=== PATIENT | male | born 1975 | race Caucasian/White ===

== ENCOUNTER 2017-04-03 16:38 | Emergency (ER) | payer BC ==
[2017-04-03 17:16] VITALS: BP 155/98
--- NOTE | 2017-04-03 17:20 | EDM.PDOC ---
ED HPI GENERAL MEDICAL PROBLEM - General Chief Complaint: Lower Extremity Injury/Pain Stated Complaint: GOUT L KNEE Time Seen by Provider: 04/03/17 17:20 Source of Information: Reports: Patient - History of Present Illness INITIAL COMMENTS - FREE TEXT/NARRATIVE: Patient is here for a gout flare up to his left knee. He states that he does get these frequently. Patient has not been taking his allopurinol. Patient states that he woke at 4 AM feeling the gout flare, wanted to take his colchicine and indomethacin, that was the only dose of each that he has had. Patient reports that on Super Bowl he did drink more alcohol especially beer and have a very poor diet of high purine foods. Patient denies any fever or chills. Denies any other symptoms or injury to his knee. Left Knee Pain Score (Numeric/FACES): 10 - Related Data Allergies Allergy/AdvReac Type Severity Reaction Status Date / Time No Known Allergies Allergy Verified 04/03/17 17:10 Home Meds: Home Meds Omeprazole Magnesium [Prilosec Otc] 20 mg PO DAILY PRN 12/16/15 [History] Colchicine [Colcrys] 0.6 mg PO BID PRN #20 tablet 01/09/16 [Rx] Indomethacin [Indocin] 50 mg PO TIDMEALS PRN #30 cap 01/09/16 [Rx] Allopurinol [Zyloprim] 100 mg PO ASDIRECTED 04/03/17 [History] Colchicine [Colcrys] 0.6 mg PO ONETIME #9 tablet 04/03/17 [Rx] Hydrocodone/Acetaminophen [Hydrocodon-Acetaminophen 5-325] 1 each PO Q6HR PRN # 10 tablet 04/03/17 [Rx] Indomethacin [Indocin] 25 mg PO TID PRN #30 cap 04/03/17 [Rx] Past Medical History Musculoskeletal History: Reports: Gout - Past Surgical History Musculoskeletal Surgical History: Reports: Other (See Below) Social & Family History - Tobacco Use Smoking Status *Q: Never Smoker Second Hand Smoke Exposure: No - Caffeine Use Caffeine Use: Reports: Coffee, Soda - Recreational Drug Use Recreational Drug Use: No Review of Systems - Review of Systems Review Of Systems: See Below Constitutional: Denies: Chills, Fever, Weakness Respiratory: Reports: No Symptoms Cardiovascular: Reports: No Symptoms Musculoskeletal: Reports: Other (Left knee pain and warmth) Skin: Denies: Erythema, Wound Neurological: Reports: No Symptoms ED EXAM, GENERAL - Physical Exam Exam: See Below Exam Limited By: No Limitations General Appearance: Alert, WD/WN, Mild Distress (In pain) Respiratory/Chest: No Respiratory Distress, Lungs Clear, Normal Breath Sounds Cardiovascular: Normal Peripheral Pulses, Regular Rate, Rhythm, No Murmur Peripheral Pulses: 2+: Posterior Tibial (L), Posterior Tibial (R) Extremities: Normal Inspection, Other (Right knee warm to the touch but no erythema. Patient has painful full range of motion. Negative anterior/ posterior drawer. Negative Isabel's.) Neurological: Alert, Oriented Skin Exam: Warm, Dry, Intact Course - Vital Signs Last Recorded V/S: Last Vital Signs Temp 97.6 F 04/03/17 17:10 Pulse 98 04/03/17 17:10 Resp 18 04/03/17 17:10 BP 155/98 H 04/03/17 17:10 Pulse Ox 100 04/03/17 17:10 - Orders/Labs/Meds Orders: Active Orders 24 hr Category Date Time Status CBC WITH MANUAL DIFF [HEME] Stat Lab 04/03/17 17:34 Results Labs: Laboratory Tests 04/03/17 04/03/17 Range/Units 17:34 17:34 WBC 8.43 (4.23-9.07) K/mm3 RBC 4.88 (4.63-6.08) M/mm3 Hgb 15.5 (13.7-17.5) gm/L Hct 43.8 (40.1-51.0) % MCV 89.8 (79.0-92.2) fl MCH 31.8 (25.7-32.2) pg MCHC 35.4 (32.2-35.5) g/dl RDW Std Deviation 41.7 (35.1-43.9) fL Plt Count 128 L (163-337) K/mm3 MPV 10.2 (9.4-12.3) fl Sodium 134 L (136-145) mEq/L Potassium 3.4 L (3.5-5.1) mEq/L Chloride 96 L (98-107) mEq/L Carbon Dioxide 26 (21-32) mEq/L Anion Gap 15.4 H (5-15) BUN 11 (7-18) mg/dL Creatinine 0.9 (0.7-1.3) mg/dL Est Cr Clr Drug Dosing 117.36 mL/min Estimated GFR (MDRD) > 60 (>60) mL/min BUN/Creatinine Ratio 12.2 L (14-18) Glucose 127 H (74-106) mg/dL Uric Acid 8.1 H (3.5-7.2) mg/dL Calcium 10.1 (8.5-10.1) mg/dL Total Bilirubin 3.6 H (0.2-1.0) mg/dL AST 43 H (15-37) U/L ALT 74 H (16-63) U/L Alkaline Phosphatase 82 (46-116) U/L C-Reactive Protein 13.5 H* (<1.0) mg/dL Total Protein 8.5 H (6.4-8.2) g/dl Albumin 4.1 (3.4-5.0) g/dl Globulin 4.4 gm/dL Albumin/Globulin Ratio 0.9 L (1-2) Meds: Medications Discontinued Medications Generic Name Dose Route Start Last Admin Trade Name Freq PRN Reason Stop Dose Admin Hydrocodone Bitart/Acetaminophen 1 tab 04/03/17 17:36 04/03/17 17:49 Aurora 325-5 Mg PO 04/03/17 17:37 1 tab ONETIME ONE Administration Ketorolac Tromethamine 60 mg 04/03/17 17:32 04/03/17 17:50 Toradol IM 04/03/17 17:33 60 mg ONETIME ONE Administration Methylprednisolone Sodium Succinate 125 mg 04/03/17 17:33 04/03/17 17:54 Solu-Medrol IM 04/03/17 17:34 125 mg ONETIME ONE Administration - Re-Assessments/Exams Free Text/Narrative Re-Assessment/Exam: Patient's symptoms certainly consistent with gout flare. Will check CBC/CRP/ uric acid. I do not feel imaging is indicated as there was no injury. Will give IM Solu-Medrol and ketorolac for pain. PO Vicodin. 04/03/17 17:39 Uric acid is 8.1 and CRP 13.5. Patient's pain improved with above treatment but not completely resolved. Did discuss with patient the need to follow low purine diet, patient agreeable to this. Will treat with colchicine/indomethacin. When flare has resolved patient will likely need to start with his allopurinol again, he will follow up with his PCP to discuss this further. Will give small quantity of hydrocodone as needed for pain. He will follow-up with PCP within a week or certainly return to the emergency room if needed. 04/03/17 18:48 Departure - Departure Time of Disposition: 18:50 Disposition: Home, Self-Care 01 Condition: Good Clinical Impression: Gout flare Qualifiers: Gout site: knee Gout etiology: unspecified cause Laterality: left Qualified Code(s): M10.9 - Gout, unspecified - Discharge Information Prescriptions: Hydrocodone/Acetaminophen [Hydrocodon-Acetaminophen 5-325] 1 each PO Q6HR PRN # 10 tablet PRN Reason: Pain Colchicine [Colcrys] 0.6 mg PO ONETIME #9 tablet Indomethacin [Indocin] 25 mg PO TID PRN #30 cap PRN Reason: Pain Referrals: PCP,None [Primary Care Provider] - Forms: ED Department Discharge Additional Instructions: Rest, activity as tolerated. You may use crutches if needed. Follow low purine diet. At acute gout flare onset, 1.2 mg colchicine initially and then 0.6 one hour later. You can do this one time per gout flare. Indomethacin 25 mg 3 times a day and taper off of this is gout flare symptoms improve. Follow-up with her PCP within the next week and discuss resuming allopurinol and this flare subsides. You may certainly return to the emergency room if needed. - My Orders Last 24 Hours: My Active Orders 04/03/17 17:34 CBC WITH MANUAL DIFF [HEME] Stat - Assessment/Plan Last 24 Hours: My Active Orders 04/03/17 17:34 CBC WITH MANUAL DIFF [HEME] Stat
[2017-04-03] MEDS ORDERED: Ketorolac 30 MG/ML SDV IM ONE (17:32)
[2017-04-03] MEDS ORDERED: methylPREDNISolone Sodium Succinate 125 MG/2 ML SDV IM ONE (17:33)
[2017-04-03] MEDS ORDERED: Acetaminophen/HYDROcodone 325-5 MG Tab PO ONE (17:36)
== END 2017-04-03 19:08 | disposition home or self-care (01) ==
LOC: JD.ED 16:38
DX: M10.9 Gout, unspecified (principal); Z79.899 Other long term (current) drug therapy
CPT/HCPCS: 36415; 80053; 84550; 85025; 86140; 96372; 99283; A9270; J1885; J2930

== ENCOUNTER 2019-03-09 04:00 | Emergency (ER) | payer BC ==
[2019-03-09 04:09] VITALS: BP 133/87; PULSE 100
[2019-03-09] MEDS ORDERED: predniSONE 20 MG Tab PO ONE (05:59)
[2019-03-09] MEDS ORDERED: predniSONE 10 MG Tab PO ONE (06:22)
[2019-03-09] MEDS ORDERED: Acetaminophen/HYDROcodone 325-5 MG Tab PO ONE (06:23)
--- NOTE | 2019-03-09 06:37 | EDM.PDOC ---
ED HPI GENERAL MEDICAL PROBLEM - General Chief Complaint: Lower Extremity Injury/Pain Stated Complaint: GOUT BOTH KNEES Time Seen by Provider: 03/09/19 05:24 Source of Information: Reports: Patient History Limitations: Reports: No Limitations - History of Present Illness INITIAL COMMENTS - FREE TEXT/NARRATIVE: Mr. Smart is a pleasant 43-year-old man with a past medical history significant for presumed gout in his feet, knees, elbows, and hands, since 2011. 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 He states that he chronically takes both indomethacin and colchicine, however, while he has still been taking indomethacin, he ran out of colchicine, and his PCP does not want to refill it. He is prescribed Uloric, but he acknowledges that he is inconsistent with its use, since whenever he takes it, his arthritis seems to worsen. The last time he took it may have been this weekend. Since running out of colchicine, the patient states that his joint pain has worsened, now to th e point that he can barely walk. He came in on crutches. No recent fever, nausea, vomiting, constipation, or diarrhea. The patient acknowledges that he is a chronic daily alcoholic, but that he has been sober for the past 4 months. He has been to inpatient treatment on 2 occasions. He is currently attending outpatient treatment at [facility]. The patient's PCP is Dr. Lefty Escobedo. The patient did receive an influenza vaccine this season. Bilateral Knee Pain Score (Numeric/FACES): 8 - Related Data Allergies Allergy/AdvReac Type Severity Reaction Status Date / Time No Known Allergies Allergy Verified 03/09/19 04:09 Home Meds: Home Meds Omeprazole Magnesium [Prilosec Otc] 20 mg PO DAILY PRN 12/16/15 [History] Colchicine [Colcrys] 0.6 mg PO ONETIME #9 tablet 04/03/17 [Rx] Indomethacin [Indocin] 25 mg PO TID PRN #30 cap 04/03/17 [Rx] Acetaminophen/HYDROcodone [Wyocena 325-5 MG] 1 - 2 tab PO Q6H PRN #16 tablet 03/09 [Rx] Febuxostat [Uloric] 40 mg PO DAILY 03/09/19 [History] predniSONE [Prednisone] 1 tab PO Q12H #14 tablet 03/09/19 [Rx] Past Medical History Musculoskeletal History: Reports: Gout (presumed, not confirmed) - Past Surgical History HEENT Surgical History: Reports: Oral Surgery (wisdom teeth extraction) GI Surgical History: Reports: Cholecystectomy (1995) Social & Family History - Family History Family Medical History: Noncontributory - Tobacco Use Smoking Status *Q: Current Every Day Smoker Years of Tobacco use: 26 Packs/Tins Daily: 0.3 - Caffeine Use Caffeine Use: Reports: Coffee, Soda - Alcohol Use Alcohol Use History: Yes Date/Time of Last Drink Comment: In recovery since Oct 2018 Alcohol Use Frequency: Daily - Recreational Drug Use Recreational Drug Use: Yes Drug Use in Last 12 Months: No Recreational Drug Type: Reports: Cocaine (last snorted 1995), Marijuana/Hashish (last smoked 2017) - Living Situation & Occupation Living situation: Reports: , with Spouse, with Family (1 child) Occupation: Employed (Applications Tester) ED ROS GENERAL - Review of Systems Review Of Systems: Comprehensive ROS is negative, except as noted in HPI. ED EXAM, GENERAL - Physical Exam Exam: See Below Exam Limited By: No Limitations General Appearance: Alert, WD/WN, No Apparent Distress Extremities: Other (2 large rubbery, nontender tophi over the patient's left elbow extensor surface, and the smaller single tophus over his right elbow extensor surface, left Achilles tendon, and left 4th dorsal MCP joint. Questionable tophi elsewhere. Both knees are warm to palpation compared to the rest of his lower extremities, however, there is no erythema, and no visible abnormalities, such as swelling, ecchymosis, or abrasion. No tenderness to direct palpation of the external knee, however, the patient has painful range of motion. Neurovascular status of both lower extremities is intact.) Course - Vital Signs Last Recorded V/S: Last Vital Signs Temp 37.1 C 03/09/19 04:07 Pulse 100 03/09/19 04:07 Resp 16 03/09/19 04:07 BP 133/87 03/09/19 04:07 Pulse Ox 95 03/09/19 04:07 - Orders/Labs/Meds Meds: Medications Discontinued Medications Generic Name Dose Route Start Last Admin Trade Name Freq PRN Reason Stop Dose Admin Hydrocodone Bitart/Acetaminophen 1 tab 03/09/19 06:49 03/09/19 06:50 Wyocena 325-10 Mg PO 03/09/19 06:50 1 tab ONETIME ONE Administration Hydrocodone Bitart/Acetaminophen Confirm 03/09/19 06:49 Wyocena 325-5 Mg Administered 03/09/19 06:50 Dose 1 tab .ROUTE .STK-MED ONE Prednisone 20 mg 03/09/19 05:59 03/09/19 06:34 Prednisone PO 03/09/19 06:00 20 mg ONETIME ONE Administration Prednisone 10 mg 03/09/19 06:22 03/09/19 06:34 Prednisone PO 03/09/19 06:23 10 mg ONETIME ONE Administration - Re-Assessments/Exams Free Text/Narrative Re-Assessment/Exam: 03/09/19 06:31 As the patient has never had an inflamed joint aspirated, we do not know for certain that the patient is suffering from gout, as opposed to pseudogout or some other arthritis, however, the large tophi over the patient's elbows, left Achilles tendon, and some MCPs strongly suggest that he is indeed suffering from chronic gout. I had considered aspirating his knee today, however, I called the lab and they inform me that there is no one here to analyze the fluid , that it would be sent to [facility], and the report will not be available until tomorrow. I would like the results to go to Dr. Farris, with whom I intend to have the patient follow-up, however, it does not appear that Dr. Farris is available tomorrow. I will therefore have the patient follow-up with Dr. Farris when he is next available, and have Dr. Farris aspirate the patient's knee. In the meantime, the patient will be treated with 30 mg of oral prednisone now, and I will prescribe 20 mg po BID that the patient should start this evening, giving him 50 mg today, then 40 mg per day starting tomorrow. I will prescribe a 7-day course, although the patient may benefit from a 14-21 day course to prevent a bounceback flareup if the steroids are withdrawn too soon. I would like the patient to follow-up with Dr. Farris within a week, however, and have him decide how long a course the patient should be on. In addition to prednisone , I will prescribe a few days worth of Wyocena. Departure - Departure Time of Disposition: 06:37 Disposition: Home, Self-Care 01 Condition: Good Clinical Impression: Chronic gout - Discharge Information *PRESCRIPTION DRUG MONITORING PROGRAM REVIEWED*: Not Applicable *COPY OF PRESCRIPTION DRUG MONITORING REPORT IN PATIENT SUKH: Not Applicable Prescriptions: Acetaminophen/HYDROcodone [Wyocena 325-5 MG] 1 - 2 tab PO Q6H PRN #16 tablet PRN Reason: Pain (Severe 7-10) predniSONE [Prednisone] 1 tab PO Q12H #14 tablet Instructions: Gout Referrals: Lefty Escobedo MD [Primary Care Provider] - Ubaldo Farris MD [Physician] - Forms: ED Department Discharge Additional Instructions: You were seen in the emergency room for a flare of your chronic knee pain, likely due to gout. You have been started on the steroid prednisone. Prescriptions for prednisone and the opioid Wyocena have been provided to you. Take one tablet of prednisone every 12 hours, starting this evening, Saturday, , as prescribed. Take one to two tablets of Wyocena up to every 6 hours, as needed for pain. If you take Wyocena, do not drive or operate heavy machinery for 12 hours afterwards. Wyocena may cause constipation, so consider taking a stool softener. Continue to take your indomethacin as previously prescribed. Follow-up with the Orthopedic Surgeon Dr. Ubaldo Farris this week. Make sure that the weekend anchor knows that you are following up from the ER. If any other problems, please do not hesitate to return to the ER. Sepsis Event Note - Evaluation Sepsis Screening Result: No Definite Risk - Focused Exam Date Exam was Performed: 03/11/19 Time Exam was Performed: 09:03
[2019-03-09] MEDS ORDERED: Acetaminophen/HYDROcodone 325-10 MG Tab PO ONE (06:49)
[2019-03-09] MEDS ORDERED: Acetaminophen/HYDROcodone 325-5 MG Tab ONE (06:49)
== END 2019-03-09 06:52 | disposition home or self-care (01) ==
LOC: JD.ED 04:00
DX: M1A.9XX0 Chronic gout, unspecified, without tophus (tophi) (principal); F17.210 Nicotine dependence, cigarettes, uncomplicated; Z79.899 Other long term (current) drug therapy
CPT/HCPCS: 99283; A9270

== ENCOUNTER 2021-02-17 16:00 | Emergency (ER) | payer BC ==
[2021-02-17 16:21] VITALS: BP 168/105; PULSE 115
--- NOTE | 2021-02-17 16:29 | EDM.PDOC ---
ED HPI GENERAL MEDICAL PROBLEM - General Chief Complaint: Allergic Reaction Stated Complaint: ALLERGIC REACTION Time Seen by Provider: 02/17/21 16:16 Source of Information: Reports: Patient - History of Present Illness INITIAL COMMENTS - FREE TEXT/NARRATIVE: 45 yr old male ill with cough, barbara., sore throat for about a week. Was seen at clinic 2 days ago, covid, strep, Flu screen all neg. Started on ceftin abx, had about 2 doses, started breaking out in generalized hives, skin erythema and itchiness yesterday, continues today, has not taken benadryl or anything else. - Related Data Allergies Allergy/AdvReac Type Severity Reaction Status Date / Time cefuroxime [From Ceftin] Allergy Hives Verified 02/17/21 16:18 Home Meds: Home Meds Colchicine [Colcrys] 0.6 mg PO ONETIME #9 tablet 04/03/17 [Rx] Indomethacin [Indocin] 25 mg PO TID PRN #30 cap 04/03/17 [Rx] predniSONE [Prednisone] 50 mg PO DAILY #6 tablet 02/17/21 [Rx] Past Medical History Musculoskeletal History: Reports: Gout Psychiatric History: Reports: Addiction - Past Surgical History HEENT Surgical History: Reports: Oral Surgery GI Surgical History: Reports: Cholecystectomy Male Surgical History: Reports: None Musculoskeletal Surgical History: Reports: Other (See Below) Other Musculoskeletal Surgeries/Procedures:: Back Surgery Social & Family History - Family History Family Medical History: No Pertinent Family History - Tobacco Use Tobacco Use Status *Q: Never Tobacco User - Caffeine Use Caffeine Use: Reports: Coffee, Energy Drinks - Alcohol Use Days Per Week of Alcohol Use: 4 Number of Drinks Per Day: 0 Total Drinks Per Week: 0 - Recreational Drug Use Recreational Drug Use: No - Living Situation & Occupation Living situation: Reports: , with Spouse, with Family (1 child) Occupation: Employed (Graphic Editor) ED ROS ALLERGIC REACTION - Review of Systems Review Of Systems: See Below Constitutional: Reports: Chills. Denies: Fever HEENT: Reports: Rhinitis, Throat Pain Respiratory: Reports: Cough Cardiovascular: Denies: Chest Pain GI/Abdominal: Denies: Abdominal Pain, Nausea, Vomiting Musculoskeletal: Reports: No Symptoms Skin: Reports: Rash, Erythema Neurological: Reports: No Symptoms ED EXAM GENERAL NO PERIP PULSE - Physical Exam Exam: See Below General Appearance: Alert, Mild Distress Eye Exam: Bilateral Eye: PERRL Throat/Mouth: Other (mild erythema post throat) Neck: Supple Respiratory/Chest: No Respiratory Distress, Lungs Clear. No: Rhonchi, Wheezing Cardiovascular: Tachycardia Neurological: Alert, Oriented Skin Exam: Warm, Dry, Erythema, Rash (scattered hives on top of generalized erhtyema, trunk worse than upper an lower extrem. ) Course - Vital Signs Last Recorded V/S: Last Vital Signs Temp 97.1 F 02/17/21 16:18 Pulse 115 H 02/17/21 16:18 Resp 14 02/17/21 16:18 BP 168/105 H 02/17/21 16:18 Pulse Ox 98 02/17/21 16:18 - Orders/Labs/Meds Orders: Active Orders 24 hr Category Date Time Status Chest 1V Frontal [CR] Stat Exams 02/17/21 16:42 Taken Meds: Medications Discontinued Medications Generic Name Dose Route Start Last Admin Trade Name Freq PRN Reason Stop Dose Admin Diphenhydramine HCl 50 mg 02/17/21 16:41 02/17/21 16:49 Diphenhydramine 50 Mg Cap PO 02/17/21 16:42 50 mg ONETIME ONE Administration Epinephrine HCl 0.3 mg 02/17/21 16:41 02/17/21 16:46 Epinephrine 1 Mg/Ml Sdv IM 02/17/21 16:42 0.3 mg ONETIME ONE Administration Famotidine 20 mg 02/17/21 16:44 02/17/21 16:49 Famotidine 20 Mg Tab PO 02/17/21 16:45 20 mg ONETIME ONE Administration Prednisone 40 mg 02/17/21 16:41 02/17/21 16:49 Prednisone 20 Mg Tab PO 02/17/21 16:42 40 mg ONETIME ONE Administration Departure - Departure Time of Disposition: 18:12 Disposition: Home, Self-Care 01 Condition: Fair Clinical Impression: Allergic reaction Qualifiers: Encounter type: initial encounter Qualified Code(s): T78.40XA - Allergy, unspecified, initial encounter - Discharge Information Prescriptions: predniSONE [Prednisone] 50 mg PO DAILY #6 tablet Instructions: Allergies, Adult, [id number] Referrals: Lefty Escobedo MD [Primary Care Provider] - Forms: ED Department Discharge Additional Instructions: Your CXR looks good today. Stop the ceftin as discussed. You are allergic to cephalosporins, possible PCN as well. Repeat benadryl 50 mg this evening. Also start claritin or zyrtec this evening and continue that for the next 5 days. Prednisone 50 mg daily for the next 5 days. Clinic Pharmacy is open tomorrow from 12 noon to 2 PM only. Follow up clinic as needed. This will likely take 3 to 5 days to completely go away. Return to ED for difficulty breathing or otherwise as needed. Sepsis Event Note (ED) - Evaluation Sepsis Screening Result: No Definite Risk - Focused Exam Vital Signs: Vital Signs Temp Pulse Resp BP Pulse Ox 02/17/21 16:18 97.1 F 115 H 14 168/105 H 98 - My Orders Last 24 Hours: My Active Orders 02/17/21 16:42 Chest 1V Frontal [CR] Stat - Assessment/Plan Last 24 Hours: My Active Orders 02/17/21 16:42 Chest 1V Frontal [CR] Stat
[2021-02-17] MEDS ORDERED: EPINEPHrine 1 MG/ML SDV IM ONE (16:41)
[2021-02-17] MEDS ORDERED: predniSONE 20 MG Tab PO ONE (16:41)
[2021-02-17] MEDS ORDERED: diphenhydrAMINE 50 MG Cap PO ONE (16:41)
[2021-02-17] MEDS ORDERED: Famotidine 20 MG Tab PO ONE (16:44)
--- NOTE | 2021-02-18 10:38 | CR ---
Chest: Portable view of the chest was obtained. Comparison: No prior chest imaging is available. Heart size and mediastinum are within normal limits. Lungs are clear with no acute parenchymal change being seen. Bony structures show nothing acute. Impression: 1. Nothing acute is seen on portable chest x-ray. Diagnostic code #1
== END 2021-02-17 18:23 | disposition home or self-care (01) ==
LOC: JD.ED 16:00
DX: L50.9 Urticaria, unspecified (principal); T36.1X5A Adverse effect of cephalosporins and other beta-lactam antibiotics, initial encounter; Z88.1 Allergy status to other antibiotic agents
CPT/HCPCS: 71045; 96372; 99283; A9270; J0171; J7512; Q0163

== ENCOUNTER 2021-09-04 09:52 | Emergency (ER) | payer BC ==
[2021-09-04 10:18] VITALS: BP 146/98; PULSE 95
[2021-09-04] MEDS ORDERED: Metoclopramide 10 MG/2 ML SDV IVPUSH ONE (10:48)
[2021-09-04] MEDS ORDERED: Thiamine 100 MG in Sodium Chloride 0.9% 100 ML IV ONE (10:50)
[2021-09-04] MEDS ORDERED: Dextrose 5%-Lactated Ringers 1,000 ML IV SCH ×2 (11:00→12:30)
[2021-09-04 11:39] LABS: CORONAVIRUS COVID-19 NAA NEGATIVE (NEGATIVE)
[2021-09-04 11:47] LABS: ESTIMATED GFR 107 mL/min (>60)
== END 2021-09-04 14:20 | disposition home or self-care (01) ==
LOC: JD.ED 09:52
DX: R53.1 Weakness (principal); R00.2 Palpitations; E87.2 Acidosis; R11.0 Nausea; Z88.1 Allergy status to other antibiotic agents; Z90.49 Acquired absence of other specified parts of digestive tract; Z20.822 Contact with and (suspected) exposure to COVID-19; Z79.899 Other long term (current) drug therapy
CPT/HCPCS: 0240U; 36415; 71045; 80053; 80307; 81001; 82009; 82553; 83605; 83690; 83735; 83880; 84484; 85025; 85610; 85730; 96361; 96365; 96375; 99285; J2765; J3411; J7121

== ENCOUNTER 2021-11-23 08:53 | Emergency (ER) | payer BC ==
[2021-11-23] MEDS ORDERED: Metoprolol Tartrate 50 MG Tab PO ONE (09:34)
[2021-11-23] MEDS ORDERED: Sodium Chloride 0.9% 10 ML Syringe FLUSH PRN (09:34)
[2021-11-23] MEDS ORDERED: LORazepam 2 MG/ML SDV IVPUSH ONE ×2 (09:34→11:41)
[2021-11-23] MEDS ORDERED: Sodium Chloride 0.9% 1,000 ML IV SCH (09:45)
[2021-11-23 10:55] VITALS: BP 138/87; PULSE 76
== END 2021-11-23 12:22 | disposition other institution (70) ==
LOC: JD.ED 08:53
DX: R00.2 Palpitations (principal); F10.930 Alcohol use, unspecified with withdrawal, uncomplicated; I10 Essential (primary) hypertension; Z88.1 Allergy status to other antibiotic agents; Z79.899 Other long term (current) drug therapy
CPT/HCPCS: 93005; 96361; 96374; 96376; 99285; A9270; J2060; J3490; J7030; 93010; 99284

== ENCOUNTER 2022-04-24 04:04 | Inpatient (IN) | payer SELFPAY ==
[2022-04-24] MEDS ORDERED: Lactated Ringers 1,000 ML IV ONE (04:54)
[2022-04-24] MEDS ORDERED: Cyanocobalamin (Vitamin B12) 1,000 MCG/ML SDV IM ONE (04:56)
[2022-04-24] MEDS ORDERED: Folic Acid 50 MG/10 ML MDV IV ONE (04:57)
[2022-04-24] MEDS ORDERED: Ondansetron 4 MG/2 ML SDV IVPUSH ONE ×2 (04:58→11:19)
[2022-04-24] MEDS ORDERED: Famotidine 20 MG/2 ML SDV IVPUSH ONE (06:01)
[2022-04-24] MEDS ORDERED: Pantoprazole 40 MG Vial IVPUSH ONE (06:01)
[2022-04-24] MEDS ORDERED: Magnesium Oxide 400 MG Tab PO ONE (06:03)
[2022-04-24] MEDS ORDERED: Lactated Ringers 1,000 ML IV SCH (06:15)
[2022-04-24] MEDS: Potassium Chloride 10 MEQ in Premix Bag 1 BAG IV SCH ×5 (06:24→19:36)
[2022-04-24] MEDS ORDERED: Acetaminophen 325 MG Tab PO PRN (12:36)
[2022-04-24] MEDS ORDERED: Ondansetron 4 MG/2 ML SDV IV PRN (12:36)
[2022-04-24] MEDS ORDERED: LORazepam 2 MG/ML SDV IVPUSH PRN (12:40)
[2022-04-24] MEDS ORDERED: LORazepam 2 MG/ML SDV IVPUSH ONE (12:47)
[2022-04-24] MEDS ORDERED: Metoclopramide 10 MG/2 ML SDV IVPUSH ONE (14:47)
[2022-04-24] MEDS ORDERED: chlordiazePOXIDE 25 MG Cap PO ONE (14:48)
[2022-04-24] MEDS: Lactated Ringers 1,000 ML IV SCH (15:55)
[2022-04-24] MEDS ORDERED: Pantoprazole 40 MG Tab.CR PO SCH (16:00)
[2022-04-24] MEDS: Thiamine 100 MG Tab PO SCH (16:07)
[2022-04-24] MEDS: LORazepam 2 MG/ML SDV IVPUSH PRN ×4 (16:17→21:07)
[2022-04-24] MEDS: Metoclopramide 10 MG/2 ML SDV IVPUSH SCH (21:07)
[2022-04-24] MEDS: chlordiazePOXIDE 25 MG Cap PO SCH (21:08)
[2022-04-25] MEDS: Lactated Ringers 1,000 ML IV SCH (00:07)
[2022-04-25] MEDS: Metoclopramide 10 MG/2 ML SDV IVPUSH SCH ×4 (02:01→20:15)
[2022-04-25] MEDS ORDERED: Magnesium Sulfate/Water 2 GM in Premix Bag 1 BAG IV ONE (07:46)
[2022-04-25] MEDS: Pantoprazole 40 MG Tab.CR PO SCH ×2 (08:05→20:15)
[2022-04-25] MEDS: Thiamine 100 MG Tab PO SCH (08:05)
[2022-04-25] MEDS: chlordiazePOXIDE 25 MG Cap PO SCH ×2 (08:05→20:15)
[2022-04-25] MEDS: Folic Acid 1 MG Tab PO SCH (08:05)
[2022-04-25] MEDS: Potassium Chloride 10 MEQ in Premix Bag 1 BAG IV SCH ×4 (08:13→11:03)
[2022-04-25] MEDS ORDERED: Pantoprazole 40 MG Tab.CR PO SCH (09:00)
[2022-04-25] MEDS: LORazepam 2 MG/ML SDV IVPUSH PRN ×3 (13:13→23:52)
[2022-04-25] MEDS: Colchicine 0.6 MG Tab PO SCH (14:50)
[2022-04-25] MEDS: methylPREDNISolone Sodium Succinate 40 MG/1 ML SDV IVPUSH SCH (15:43)
[2022-04-25] MEDS ORDERED: Ketorolac 15 MG/ML SDV IVPUSH ONE (17:37)
[2022-04-25] MEDS ORDERED: cloNIDine 0.1 MG Tab PO ONE (21:49)
[2022-04-26] MEDS: Metoclopramide 10 MG/2 ML SDV IVPUSH SCH ×2 (02:03→07:59)
[2022-04-26] MEDS: methylPREDNISolone Sodium Succinate 40 MG/1 ML SDV IVPUSH SCH (07:59)
[2022-04-26] MEDS: Colchicine 0.6 MG Tab PO SCH (08:01)
[2022-04-26] MEDS: Folic Acid 1 MG Tab PO SCH (08:01)
[2022-04-26] MEDS: Pantoprazole 40 MG Tab.CR PO SCH ×2 (08:01→22:10)
[2022-04-26] MEDS: chlordiazePOXIDE 25 MG Cap PO SCH ×2 (08:02→22:08)
[2022-04-26] MEDS: Thiamine 100 MG Tab PO SCH (08:02)
[2022-04-26] MEDS: cloNIDine 0.1 MG Tab PO SCH ×3 (08:02→22:08)
[2022-04-26] MEDS ORDERED: Calcium Carbonate 500 MG Tab.Chew PO PRN (13:15)
[2022-04-27] MEDS: LORazepam 2 MG/ML SDV IVPUSH PRN (04:28)
[2022-04-27 04:55] VITALS: PULSE 92
[2022-04-27] MEDS ORDERED: Magnesium Sulfate/Water 2 GM in Premix Bag 1 BAG IV ONE (07:21)
[2022-04-27] MEDS: cloNIDine 0.1 MG Tab PO SCH (08:00)
[2022-04-27] MEDS: chlordiazePOXIDE 25 MG Cap PO SCH (08:30)
[2022-04-27] MEDS: Colchicine 0.6 MG Tab PO SCH (08:30)
[2022-04-27] MEDS: Thiamine 100 MG Tab PO SCH (08:30)
[2022-04-27] MEDS: Pantoprazole 40 MG Tab.CR PO SCH (08:30)
[2022-04-27] MEDS: Potassium Chloride 10 MEQ in Premix Bag 1 BAG IV SCH ×2 (08:30→10:09)
[2022-04-27] MEDS: Folic Acid 1 MG Tab PO SCH (08:30)
[2022-04-27] MEDS ORDERED: predniSONE 20 MG Tab PO ONE (09:37)
[2022-04-27 10:08] VITALS: BP 172/93
[2022-04-27] MEDS: methylPREDNISolone Sodium Succinate 40 MG/1 ML SDV IVPUSH SCH (10:10)
== END 2022-04-27 10:00 | disposition home or self-care (01) | DRG 897 ==
LOC: JD.ED 04:04 → JD.ICU 12:14
PROVIDERS: ADMIT Internal Medicine; ATTEND Internal Medicine
DX: F10.239 Alcohol dependence with withdrawal, unspecified (principal); M10.9 Gout, unspecified; K21.00 Gastro-esophageal reflux disease with esophagitis, without bleeding; D72.829 Elevated white blood cell count, unspecified; R09.02 Hypoxemia; Z88.1 Allergy status to other antibiotic agents; Z79.899 Other long term (current) drug therapy; Z90.49 Acquired absence of other specified parts of digestive tract
CPT/HCPCS: 36415; 71045; 71045-26; 71046; 71046-26; 80053; 80307; 81001; 82248; 83690; 83735; 84100; 84145; 84550; 85025; 85610; 93010; 96361; 96365; 96366; 96372; 96375; 96376; 99284; 99285-25; A9270-GY; C9113; J1885; J2060; J2405; J2765; J2920; J3420; J3475; J3480; J3490; J7120; J7512

== ENCOUNTER 2022-05-05 09:17 | Inpatient (IN) | payer SELFPAY ==
[2022-05-05] MEDS ORDERED: Lactated Ringers 1,000 ML IV ONE ×2 (10:12→14:08)
[2022-05-05] MEDS ORDERED: Thiamine 200 MG/2 ML MDV IVPUSH ONE (10:14)
[2022-05-05] MEDS ORDERED: Magnesium Sulfate/Water 2 GM in Premix Bag 1 BAG IV ONE (10:16)
[2022-05-05] MEDS ORDERED: PHENobarbital Sodium 65 MG/ML SDV IVPUSH ONE ×3 (10:16→13:22)
[2022-05-05] MEDS: Multivitamins with Minerals/Folic Acid/Lutein/Zeaxanth Tab PO SCH (10:59)
[2022-05-05] MEDS ORDERED: Iopamidol 755 Mg/ML 100 ML Bottle IVPUSH ONE (11:54)
[2022-05-05] MEDS ORDERED: Sodium Chloride 0.9% 10 ML Syringe FLUSH ONE (12:00)
[2022-05-05 12:56] LABS: CORONAVIRUS COVID-19 NAA NEGATIVE (NEGATIVE)
[2022-05-05] MEDS ORDERED: Potassium Chloride 20 MEQ Tab.ER PO ONE (14:06)
[2022-05-05] MEDS ORDERED: Acetaminophen 325 MG Tab PO PRN (16:11)
[2022-05-05] MEDS ORDERED: Morphine 2 MG/ML SYRINGE IVPUSH PRN (16:11)
[2022-05-05] MEDS ORDERED: LORazepam 2 MG/ML SDV IVPUSH PRN ×2 (16:11→18:16)
[2022-05-05] MEDS: Ondansetron 4 MG Tab.DIS PO PRN (16:43)
[2022-05-05] MEDS: LORazepam 2 MG/ML SDV IVPUSH PRN (18:30)
[2022-05-05] MEDS: Lactated Ringers 1,000 ML IV SCH (19:45)
[2022-05-05] MEDS: Folic Acid 1 MG Tab PO SCH (20:00)
[2022-05-05] MEDS: Thiamine 100 MG Tab PO SCH (20:00)
[2022-05-05] MEDS ORDERED: Colchicine 0.6 MG Tab PO PRN (20:11)
[2022-05-05] MEDS: Indomethacin 25 MG Cap PO SCH ×2 (20:37→20:40)
[2022-05-06] MEDS: LORazepam 2 MG/ML SDV IVPUSH PRN (04:27)
[2022-05-06] MEDS: Lactated Ringers 1,000 ML IV SCH (04:30)
[2022-05-06] MEDS: Enoxaparin 40 MG/0.4 ML Syringe SUBCUT SCH (08:44)
[2022-05-06] MEDS: Indomethacin 25 MG Cap PO SCH ×2 (08:44→20:00)
[2022-05-06] MEDS: Multivitamins with Minerals/Folic Acid/Lutein/Zeaxanth Tab PO SCH (08:44)
[2022-05-06] MEDS: Pantoprazole 40 MG Tab.CR PO SCH (08:45)
[2022-05-06] MEDS ORDERED: Potassium Bicarbonate/Cit Ac 20 MEQ Effervescent Tab PO ONE (08:46)
[2022-05-06] MEDS ORDERED: Magnesium Sulfate/Water 2 GM/50 ML BAG IV ONE (08:46)
[2022-05-06] MEDS ORDERED: Non-Formulary Medication 1 Each (Febuxostat [Febuxostat] 40 MG Tablet) PO SCH (09:00)
[2022-05-06] MEDS: Ondansetron 4 MG Tab.DIS PO PRN ×2 (09:17→13:50)
[2022-05-06 16:04] VITALS: PULSE 85
[2022-05-06] MEDS: Folic Acid 1 MG Tab PO SCH (20:00)
[2022-05-06] MEDS: Thiamine 100 MG Tab PO SCH (20:00)
[2022-05-06] MEDS ORDERED: traZODone 50 MG Tab PO PRN (22:43)
[2022-05-07] MEDS: Pantoprazole 40 MG Tab.CR PO SCH (06:23)
[2022-05-07 07:37] VITALS: BP 145/84
[2022-05-07] MEDS: Indomethacin 25 MG Cap PO SCH (08:20)
[2022-05-07] MEDS: Multivitamins with Minerals/Folic Acid/Lutein/Zeaxanth Tab PO SCH (08:20)
[2022-05-07] MEDS: Enoxaparin 40 MG/0.4 ML Syringe SUBCUT SCH (08:20)
[2022-05-07] MEDS ORDERED: Magnesium Oxide 400 MG Tab PO SCH (09:00)
[2022-05-07] MEDS ORDERED: Potassium Bicarbonate/Cit Ac 20 MEQ Effervescent Tab PO ONE (09:00)
== END 2022-05-07 14:10 | disposition home or self-care (01) | DRG 897 ==
LOC: JD.ED 09:17 → JD.ICU 16:11
PROVIDERS: ADMIT Internal Medicine; ATTEND Internal Medicine
DX: F10.232 Alcohol dependence with withdrawal with perceptual disturbance (principal); E87.20 Acidosis, unspecified; I10 Essential (primary) hypertension; Z20.822 Contact with and (suspected) exposure to COVID-19; K21.9 Gastro-esophageal reflux disease without esophagitis; M10.9 Gout, unspecified; E87.6 Hypokalemia; R09.02 Hypoxemia; E83.42 Hypomagnesemia; Z98.890 Other specified postprocedural states; Z79.899 Other long term (current) drug therapy; Z90.49 Acquired absence of other specified parts of digestive tract; Z88.8 Allergy status to other drugs, medicaments and biological substances
CPT/HCPCS: 0240U; 36415; 71046; 71046-26; 71275; 71275-26; 74177; 74177-26; 80053; 81001; 82803; 83605; 83690; 83735; 84100; 84484; 85025; 85610; 93005; 93010; 99222; 99233; 99239; 99285; A9270-GY; J1650; J2060; J2560; J3411; J3475; J3490; J7120; Q9967

== ENCOUNTER 2023-01-13 12:20 | Emergency (ER) | payer BC ==
[2023-01-13 12:39] VITALS: BP 175/101; PULSE 116
[2023-01-13 12:52] LABS: BASOPHILS ABSOLUTE AUTO 0.1 K/mm3 (0.0-0.2); BASOPHILS PERCENT AUTO 0.5 % (0.0-1.0); EOSINOPHILS ABSOLUTE AUTO 0.1 K/mm3 (0.0-0.4); EOSINOPHILS PERCENT AUTO 0.5 % (0.0-6.0); HEMATOCRIT 46.4 % (42.0-52.0); HEMOGLOBIN 16.6 gm/dl (14.0-18.0); IMMATURE GRAN ABSOLUTE AUTO 0.03 K/mm3 (0.00-0.05); IMMATURE GRAN PERCENT AUTO 0.2 % (0.0-0.4); LYMPHOCYTES ABSOLUTE AUTO 3.9 K/mm3 (1.0-4.8); LYMPHOCYTES PERCENT AUTO 28.4 % (24.0-44.0); MEAN CORPUSCULAR HEMOGLOBIN 29.4 pg (28.0-32.0); MEAN CORPUSCULAR HGB CONC 35.8 g/dl (32.0-36.0); MEAN CORPUSCULAR VOLUME 82.1 fl (83.0-99.0); MEAN PLATELET VOLUME 8.8 fl (9.4-12.4); MONOCYTES ABSOLUTE AUTO 0.7 K/mm3 (0.0-0.8); NEUTROPHILS ABSOLUTE AUTO 8.9 K/mm3 (1.8-7.7); NEUTROPHILS PERCENT AUTO 65.4 % (41.0-71.0); PLATELET COUNT,PLT 397 K/mm3 (150-400); RED BLOOD CELL COUNT 5.65 M/mm3 (4.52-5.90); WHITE BLOOD CELL COUNT,WBC 13.57 K/mm3 (3.9-11.3)
[2023-01-13 13:21] LABS: ALBUMIN 4.2 g/dl (3.4-5.0); ANION GAP 25.3 (5-15); BILIRUBIN TOTAL 1.8 mg/dL (0.2-1.0); CALCIUM 8.9 mg/dL (8.5-10.1); EST CRCL DRUG DOSING (CG) 99.16 mL/min; ETHANOL BLOOD MEDICAL 0.33 gm% (0.00); POTASSIUM,K 3.3 mEq/L (3.5-5.1); PROTEIN TOTAL,TP 8.3 g/dl (6.4-8.2)
[2023-01-13 14:25] LABS: BARBITURATE SCREEN,URINE NEGATIVE (CUTOFF=200); BENZODIAZEPINES SCREEN,URINE NEGATIVE (CUTOFF=150); BUPRENORPHINE SCREEN,URINE NEGATIVE (CUTOFF=10); METHADONE SCREEN, URINE NEGATIVE (CUT0FF=200); METHAMPHETAMINES SCREEN, URINE NEGATIVE (CUTOFF=500); OXYCODONE SCREEN,URINE NEGATIVE (CUT0FF=100); THC SCREEN,URINE 20 NG/ML NEGATIVE (CUTOFF=50)
[2023-01-13 14:27] LABS: AMPHETAMINES SCREEN, URINE NEGATIVE (CUTOFF=500)
== END 2023-01-13 14:05 | disposition left against medical advice (07) ==
LOC: JD.ED 12:20
DX: F10.129 Alcohol abuse with intoxication, unspecified (principal); R46.89 Other symptoms and signs involving appearance and behavior; I10 Essential (primary) hypertension; K21.9 Gastro-esophageal reflux disease without esophagitis; Z79.899 Other long term (current) drug therapy; Z88.1 Allergy status to other antibiotic agents; Y90.8 Blood alcohol level of 240 mg/100 ml or more
CPT/HCPCS: 36415; 80053; 80306; 80307; 85025; 99283; 99284

== ENCOUNTER 2023-02-28 04:23 | Emergency (ER) | payer BC ==
[2023-02-28] MEDS ORDERED: Metoclopramide 10 MG/2 ML SDV IVPUSH ONE ×2 (04:41→07:46)
[2023-02-28] MEDS ORDERED: LORazepam 2 MG/ML SDV IVPUSH ONE ×2 (04:41→07:46)
[2023-02-28] MEDS ORDERED: Aluminum Hydroxide/Magnesium Hydroxide/Simethicone Susp 30 ML Cup PO ONE (04:41)
[2023-02-28] MEDS ORDERED: Dextrose 5%-0.9% NaCl 1,000 ML IV SCH (04:45)
[2023-02-28 04:50] LABS: BASOPHILS ABSOLUTE AUTO 0.1 K/mm3 (0.0-0.2); BASOPHILS PERCENT AUTO 0.3 % (0.0-1.0); EOSINOPHILS ABSOLUTE AUTO 0.1 K/mm3 (0.0-0.4); EOSINOPHILS PERCENT AUTO 0.3 % (0.0-6.0); HEMATOCRIT 44.7 % (42.0-52.0); HEMOGLOBIN 16.2 gm/dl (14.0-18.0); IMMATURE GRAN ABSOLUTE AUTO 0.07 K/mm3 (0.00-0.05); IMMATURE GRAN PERCENT AUTO 0.4 % (0.0-0.4); LYMPHOCYTES ABSOLUTE AUTO 3.7 K/mm3 (1.0-4.8); LYMPHOCYTES PERCENT AUTO 20.6 % (24.0-44.0); MEAN CORPUSCULAR HEMOGLOBIN 30.6 pg (28.0-32.0); MEAN CORPUSCULAR HGB CONC 36.2 g/dl (32.0-36.0); MEAN CORPUSCULAR VOLUME 84.3 fl (83.0-99.0); MEAN PLATELET VOLUME 8.6 fl (9.4-12.4); MONOCYTES ABSOLUTE AUTO 1.3 K/mm3 (0.0-0.8); MONOCYTES PERCENT AUTO 7.1 % (0.0-8.0); NEUTROPHILS ABSOLUTE AUTO 12.8 K/mm3 (1.8-7.7); NEUTROPHILS PERCENT AUTO 71.3 % (41.0-71.0); PLATELET COUNT,PLT 380 K/mm3 (150-400); WHITE BLOOD CELL COUNT,WBC 17.93 K/mm3 (3.9-11.3)
[2023-02-28 05:04] LABS: INR 0.95; PROTHROMBIN TIME 10.2 SECONDS (9.7-12.0)
[2023-02-28 05:05] LABS: PTT,PARTIAL THROMBOPLSTIN TIME 23.2 SECONDS (21.7-31.4)
[2023-02-28 05:15] LABS: ALBUMIN 4.2 g/dl (3.4-5.0); ANION GAP 24.4 (5-15); CALCIUM 9.1 mg/dL (8.5-10.1); EST CRCL DRUG DOSING (CG) 99.16 mL/min; MAGNESIUM 1.6 mg/dL (1.8-2.4); POTASSIUM,K 3.4 mEq/L (3.5-5.1); PROTEIN TOTAL,TP 8.3 g/dl (6.4-8.2)
[2023-02-28] MEDS ORDERED: Lactated Ringers 1,000 ML IV ONE (06:00)
[2023-02-28] MEDS ORDERED: Dextrose 5%-Lact Ringers w/KCl 1,000 ML IV SCH (07:15)
[2023-02-28 09:31] VITALS: BP 139/79; PULSE 110
== END 2023-02-28 09:25 | disposition home or self-care (01) ==
LOC: JD.ED 04:23
DX: F10.930 Alcohol use, unspecified with withdrawal, uncomplicated (principal); E86.0 Dehydration; I10 Essential (primary) hypertension; K21.9 Gastro-esophageal reflux disease without esophagitis; Z86.16 Personal history of COVID-19; Z88.1 Allergy status to other antibiotic agents
CPT/HCPCS: 36415; 71045; 80053; 80307; 83605; 83690; 83735; 83880; 84484; 85025; 85610; 85730; 93005; 96361; 96365; 96375; 96376; 99285; A9270; J2060; J2765; J3480; J7042; J7120; 93010; 99284

== ENCOUNTER 2023-03-19 18:22 | Emergency (ER) | payer BC ==
[2023-03-19] MEDS ORDERED: Ondansetron 4 MG/2 ML SDV IVPUSH ONE ×2 (19:04→23:52)
[2023-03-19] MEDS ORDERED: LORazepam 2 MG/ML SDV IVPUSH ONE ×3 (19:06→23:31)
[2023-03-19] MEDS ORDERED: Sodium Chloride 0.9% 1,000 ML IV SCH (19:15)
[2023-03-19] MEDS: Sodium Chloride 0.9% 10 ML Syringe FLUSH PRN ×2 (19:24→21:20)
[2023-03-19 19:49] LABS: BASOPHILS ABSOLUTE AUTO 0.1 K/mm3 (0.0-0.2); BASOPHILS PERCENT AUTO 0.5 % (0.0-1.0); EOSINOPHILS PERCENT AUTO 0.1 % (0.0-6.0); HEMATOCRIT 46.7 % (42.0-52.0); HEMOGLOBIN 16.8 gm/dl (14.0-18.0); IMMATURE GRAN ABSOLUTE AUTO 0.08 K/mm3 (0.00-0.05); IMMATURE GRAN PERCENT AUTO 0.4 % (0.0-0.4); LYMPHOCYTES ABSOLUTE AUTO 3.6 K/mm3 (1.0-4.8); LYMPHOCYTES PERCENT AUTO 18.1 % (24.0-44.0); MEAN CORPUSCULAR HEMOGLOBIN 30.7 pg (28.0-32.0); MEAN CORPUSCULAR VOLUME 85.4 fl (83.0-99.0); MEAN PLATELET VOLUME 8.7 fl (9.4-12.4); MONOCYTES ABSOLUTE AUTO 0.6 K/mm3 (0.0-0.8); MONOCYTES PERCENT AUTO 3.1 % (0.0-8.0); NEUTROPHILS ABSOLUTE AUTO 15.5 K/mm3 (1.8-7.7); NEUTROPHILS PERCENT AUTO 77.8 % (41.0-71.0); PLATELET COUNT,PLT 354 K/mm3 (150-400); RED BLOOD CELL COUNT 5.47 M/mm3 (4.52-5.90); WHITE BLOOD CELL COUNT,WBC 19.89 K/mm3 (3.9-11.3)
[2023-03-19 20:13] LABS: A/G RATIO 0.9 (1-2); ALBUMIN 3.8 g/dl (3.4-5.0); ANION GAP 28.4 (5-15); BILIRUBIN TOTAL 1.5 mg/dL (0.2-1.0); CALCIUM 8.7 mg/dL (8.5-10.1); EST CRCL DRUG DOSING (CG) 99.16 mL/min; ETHANOL BLOOD MEDICAL 0.1 gm% (0.00); MAGNESIUM 1.7 mg/dL (1.8-2.4); POTASSIUM,K 3.4 mEq/L (3.5-5.1)
[2023-03-19] MEDS ORDERED: Sodium Chloride 0.9% 1,000 ML IV ONE ×2 (21:20→23:31)
[2023-03-19 23:24] LABS: BARBITURATE SCREEN,URINE NEGATIVE (CUTOFF=200); BENZODIAZEPINES SCREEN,URINE PRESUMPTIVE POSITIVE (CUTOFF=150); BUPRENORPHINE SCREEN,URINE NEGATIVE (CUTOFF=10); METHADONE SCREEN, URINE NEGATIVE (CUT0FF=200); METHAMPHETAMINES SCREEN, URINE NEGATIVE (CUTOFF=500); OXYCODONE SCREEN,URINE NEGATIVE (CUT0FF=100); THC SCREEN,URINE 20 NG/ML NEGATIVE (CUTOFF=50)
[2023-03-19 23:25] LABS: AMPHETAMINES SCREEN, URINE NEGATIVE (CUTOFF=500)
[2023-03-19] MEDS ORDERED: Thiamine 100 MG Tab PO ONE (23:29)
[2023-03-19] MEDS ORDERED: Magnesium Sulfate/Water 2 GM/50 ML BAG IV ONE (23:29)
[2023-03-19] MEDS ORDERED: Folic Acid 1 MG Tab PO ONE (23:30)
[2023-03-20] MEDS: Sodium Chloride 0.9% 10 ML Syringe FLUSH PRN (01:36)
[2023-03-20 03:38] VITALS: BP 178/96; PULSE 101
== END 2023-03-20 03:38 | disposition home or self-care (01) ==
LOC: JD.ED 18:22
DX: F10.230 Alcohol dependence with withdrawal, uncomplicated (principal); F10.930 Alcohol use, unspecified with withdrawal, uncomplicated; K21.9 Gastro-esophageal reflux disease without esophagitis; I10 Essential (primary) hypertension; Z90.49 Acquired absence of other specified parts of digestive tract; Z86.16 Personal history of COVID-19; Z79.899 Other long term (current) drug therapy; Z88.8 Allergy status to other drugs, medicaments and biological substances
CPT/HCPCS: 36415; 80053; 80306; 80307; 83690; 83735; 85025; 93005; 96361; 96365; 96366; 96375; 96376; 99285; A9270; J2060; J2405; J3360; J3475; J3490; J7030; 93010; 99284

== ENCOUNTER 2023-11-25 13:39 | Emergency (ER) | payer SELFPAY ==
[2023-11-25 13:55] VITALS: BP 178/111; PULSE 117
[2023-11-25] MEDS: Lactated Ringers 1,000 ML IV SCH (14:22)
[2023-11-25] MEDS: Ondansetron 4 MG/2 ML SDV IVPUSH ONE ×2 (14:22→20:26)
[2023-11-25 14:34] LABS: BASOPHILS PERCENT AUTO 0.7 % (0.0-1.0); EOSINOPHILS PERCENT AUTO 0.5 % (0.0-6.0); HEMATOCRIT 42.2 % (42.0-52.0); IMMATURE GRAN ABSOLUTE AUTO 0.03 K/mm3 (0.00-0.05); IMMATURE GRAN PERCENT AUTO 0.5 % (0.0-0.4); LYMPHOCYTES ABSOLUTE AUTO 2.9 K/mm3 (1.0-4.8); LYMPHOCYTES PERCENT AUTO 48.2 % (24.0-44.0); MEAN CORPUSCULAR HEMOGLOBIN 31.3 pg (28.0-32.0); MEAN CORPUSCULAR HGB CONC 35.5 g/dl (32.0-36.0); MEAN CORPUSCULAR VOLUME 87.9 fl (83.0-99.0); MEAN PLATELET VOLUME 9.4 fl (9.4-12.4); MONOCYTES ABSOLUTE AUTO 0.5 K/mm3 (0.0-0.8); MONOCYTES PERCENT AUTO 7.5 % (0.0-8.0); NEUTROPHILS ABSOLUTE AUTO 2.6 K/mm3 (1.8-7.7); NEUTROPHILS PERCENT AUTO 42.6 % (41.0-71.0); WHITE BLOOD CELL COUNT,WBC 5.98 K/mm3 (3.9-11.3)
[2023-11-25 14:36] LABS: PLATELET COUNT,PLT 140 K/mm3 (150-400)
[2023-11-25 14:52] LABS: A/G RATIO 1.1 (1-2); ALBUMIN 3.8 g/dl (3.4-5.0); BILIRUBIN TOTAL 1.5 mg/dL (0.2-1.0); BUN/CREATININE RATIO 6.7 (14-18); CALCIUM 9.1 mg/dL (8.5-10.1); CREATININE 0.9 mg/dL (0.7-1.3); EST CRCL DRUG DOSING (CG) 110.17 mL/min; ETHANOL BLOOD MEDICAL 0.18 gm% (0.00); MAGNESIUM 1.1 mg/dL (1.8-2.4); PROTEIN TOTAL,TP 7.4 g/dl (6.4-8.2)
[2023-11-25] MEDS: LORazepam 2 MG/ML SDV IVPUSH ONE ×2 (15:55→19:15)
[2023-11-25] MEDS: Potassium Chloride 10 MEQ in Premix Bag 1 BAG IV SCH (15:55)
[2023-11-25] MEDS: Magnesium Sulfate/Water Premix 2 GM/50 ML BAG IV SCH (16:01)
[2023-11-25] MEDS: Magnesium Oxide 400 MG Tab PO ONE (16:01)
[2023-11-25] MEDS: Sodium Chloride 0.9% 1,000 ML IV SCH (17:16)
[2023-11-25] MEDS: Magnesium Sulfate/Water Premix 2 GM/50 ML BAG IV ONE (18:47)
[2023-11-25] MEDS: Lactated Ringers 1,000 ML IV ONE (20:24)
== END 2023-11-25 21:42 | disposition home or self-care (01) ==
LOC: JD.ED 13:39
DX: F10.930 Alcohol use, unspecified with withdrawal, uncomplicated (principal); F10.929 Alcohol use, unspecified with intoxication, unspecified; E83.42 Hypomagnesemia; E87.6 Hypokalemia; I10 Essential (primary) hypertension; K21.9 Gastro-esophageal reflux disease without esophagitis; Z86.16 Personal history of COVID-19; Z90.49 Acquired absence of other specified parts of digestive tract; Z79.899 Other long term (current) drug therapy; Z88.8 Allergy status to other drugs, medicaments and biological substances
CPT/HCPCS: 36415; 80053; 80307; 83735; 85025; 93005; 93010; 96361; 96365; 96366; 96368; 96375; 96376; 99284; 99285-25; A9270-GY; J2060; J2405; J3475; J3480; J7030; J7120

== ENCOUNTER 2023-12-18 08:08 | Emergency (ER) | payer SELFPAY ==
[2023-12-18] MEDS: Lactated Ringers 1,000 ML IV ONE (10:09)
[2023-12-18] MEDS: Ondansetron 4 MG/2 ML SDV IVPUSH ONE (10:11)
[2023-12-18] MEDS: Sodium Chloride 0.9% 10 ML Syringe FLUSH PRN (10:12)
[2023-12-18] MEDS: LORazepam 2 MG/ML SDV IVPUSH ONE ×2 (10:12→11:28)
[2023-12-18 10:30] LABS: BASOPHILS PERCENT AUTO 0.5 % (0.0-1.0); EOSINOPHILS PERCENT AUTO 0.6 % (0.0-6.0); HEMATOCRIT 41.2 % (42.0-52.0); HEMOGLOBIN 15.1 gm/dl (14.0-18.0); IMMATURE GRAN ABSOLUTE AUTO 0.07 K/mm3 (0.00-0.05); IMMATURE GRAN PERCENT AUTO 1.1 % (0.0-0.4); LYMPHOCYTES PERCENT AUTO 29.8 % (24.0-44.0); MEAN CORPUSCULAR HEMOGLOBIN 31.5 pg (28.0-32.0); MEAN CORPUSCULAR HGB CONC 36.7 g/dl (32.0-36.0); MEAN PLATELET VOLUME 10.5 fl (9.4-12.4); MONOCYTES ABSOLUTE AUTO 0.7 K/mm3 (0.0-0.8); MONOCYTES PERCENT AUTO 10.9 % (0.0-8.0); NEUTROPHILS ABSOLUTE AUTO 3.8 K/mm3 (1.8-7.7); NEUTROPHILS PERCENT AUTO 57.1 % (41.0-71.0); PLATELET COUNT,PLT 87 K/mm3 (150-400); RED BLOOD CELL COUNT 4.79 M/mm3 (4.52-5.90); WHITE BLOOD CELL COUNT,WBC 6.61 K/mm3 (3.9-11.3)
[2023-12-18 10:59] LABS: ALBUMIN 3.6 g/dl (3.4-5.0); ANION GAP 12.5 (5-15); BILIRUBIN TOTAL 1.5 mg/dL (0.2-1.0); BUN/CREATININE RATIO 12.9 (14-18); CALCIUM 10.6 mg/dL (8.5-10.1); CREATININE 0.7 mg/dL (0.7-1.3); EST CRCL DRUG DOSING (CG) 141.65 mL/min; PROTEIN TOTAL,TP 7.3 g/dl (6.4-8.2); TSH 3.564 uIU/mL (0.358-3.74)
[2023-12-18 11:10] LABS: POTASSIUM,K 2.5 mEq/L (3.5-5.1); SLIDE REVIEW ABNORMAL SMEAR
[2023-12-18] MEDS: Potassium Chloride 10 MEQ in Premix Bag 1 BAG IV SCH (11:26)
[2023-12-18] MEDS: Potassium Chloride 20 MEQ Tab.ER PO ONE (11:28)
[2023-12-18] MEDS: Sodium Chloride 0.9% 1,000 ML IV SCH (11:49)
[2023-12-18 13:12] LABS: BARBITURATE SCREEN,URINE NEGATIVE (CUTOFF=200); BENZODIAZEPINES SCREEN,URINE PRESUMPTIVE POSITIVE (CUTOFF=150); BUPRENORPHINE SCREEN,URINE NEGATIVE (CUTOFF=10); METHADONE SCREEN, URINE NEGATIVE (CUT0FF=200); METHAMPHETAMINES SCREEN, URINE NEGATIVE (CUTOFF=500); OXYCODONE SCREEN,URINE NEGATIVE (CUT0FF=100); THC SCREEN,URINE 20 NG/ML PRESUMPTIVE POSITIVE (CUTOFF=50)
[2023-12-18 13:13] LABS: AMPHETAMINES SCREEN, URINE NEGATIVE (CUTOFF=500)
[2023-12-18 16:49] VITALS: BP 153/104; PULSE 88
== END 2023-12-18 15:40 | disposition home or self-care (01) ==
LOC: JD.ED 08:08
DX: E87.6 Hypokalemia (principal); E83.42 Hypomagnesemia; I10 Essential (primary) hypertension; K21.9 Gastro-esophageal reflux disease without esophagitis; Z86.16 Personal history of COVID-19; Z90.49 Acquired absence of other specified parts of digestive tract; Z79.899 Other long term (current) drug therapy; Z88.8 Allergy status to other drugs, medicaments and biological substances
CPT/HCPCS: 36415; 80053; 80143; 80179; 80306; 80307; 83735; 84443; 85025; 93005; 96361; 96374; 96375; 96376; 99285; A9270; J2060; J2405; J3480; J3490; J7030; J7120; 93010; 99284

== ENCOUNTER 2024-03-20 01:55 | Inpatient (IN) | payer OTHER ==
[2024-03-20] MEDS ORDERED: Sodium Chloride 0.9% 10 ML Syringe FLUSH PRN (02:43)
[2024-03-20] MEDS: Sodium Chloride 0.9% 1,000 ML IV ONE (02:53)
[2024-03-20] MEDS: LORazepam 2 MG/ML SDV IV ONE ×2 (02:54→07:53)
[2024-03-20 03:42] LABS: BASOPHILS PERCENT AUTO 0.6 % (0.0-1.0); HEMATOCRIT 31.8 % (42.0-52.0); HEMOGLOBIN 11.2 gm/dl (14.0-18.0); IMMATURE GRAN ABSOLUTE AUTO 0.02 K/mm3 (0.00-0.05); IMMATURE GRAN PERCENT AUTO 0.6 % (0.0-0.4); LYMPHOCYTES ABSOLUTE AUTO 0.7 K/mm3 (1.0-4.8); LYMPHOCYTES PERCENT AUTO 20.3 % (24.0-44.0); MEAN CORPUSCULAR HEMOGLOBIN 29.6 pg (28.0-32.0); MEAN CORPUSCULAR HGB CONC 35.2 g/dl (32.0-36.0); MEAN CORPUSCULAR VOLUME 84.1 fl (83.0-99.0); MEAN PLATELET VOLUME 8.7 fl (9.4-12.4); MONOCYTES ABSOLUTE AUTO 0.3 K/mm3 (0.0-0.8); MONOCYTES PERCENT AUTO 9.5 % (0.0-8.0); NEUTROPHILS ABSOLUTE AUTO 2.4 K/mm3 (1.8-7.7); PLATELET COUNT,PLT 65 K/mm3 (150-400); RED BLOOD CELL COUNT 3.78 M/mm3 (4.52-5.90); WHITE BLOOD CELL COUNT,WBC 3.49 K/mm3 (3.9-11.3)
[2024-03-20 04:20] LABS: A/G RATIO 1.1 (1-2); ALBUMIN 3.4 g/dl (3.4-5.0); ANION GAP 18.6 (5-15); BILIRUBIN TOTAL 1.9 mg/dL (0.2-1.0); BUN/CREATININE RATIO 11.4 (14-18); CALCIUM 7.6 mg/dL (8.5-10.1); CREATININE 0.7 mg/dL (0.7-1.3); EST CRCL DRUG DOSING (CG) 140.11 mL/min; ETHANOL BLOOD MEDICAL 0.17 gm% (0.00); MAGNESIUM 1.1 mg/dL (1.8-2.4); POTASSIUM,K 2.6 mEq/L (3.5-5.1); PROTEIN TOTAL,TP 6.4 g/dl (6.4-8.2)
[2024-03-20 05:28] LABS: SLIDE REVIEW ABNORMAL SMEAR
[2024-03-20] MEDS: Magnesium Sulfate/Water Premix 4 GM in Premix Bag 1 BAG IV ONE (05:50)
[2024-03-20] MEDS: Ondansetron 4 MG/2 ML SDV IVPUSH ONE ×2 (06:00→11:28)
[2024-03-20 06:09] LABS: BARBITURATE SCREEN,URINE NEGATIVE (CUTOFF=200); BENZODIAZEPINES SCREEN,URINE PRESUMPTIVE POSITIVE (CUTOFF=150); BUPRENORPHINE SCREEN,URINE NEGATIVE (CUTOFF=10); METHADONE SCREEN, URINE NEGATIVE (CUT0FF=200); METHAMPHETAMINES SCREEN, URINE NEGATIVE (CUTOFF=500); OXYCODONE SCREEN,URINE NEGATIVE (CUT0FF=100); THC SCREEN,URINE 20 NG/ML NEGATIVE (CUTOFF=50)
[2024-03-20 06:18] LABS: AMPHETAMINES SCREEN, URINE NEGATIVE (CUTOFF=500)
[2024-03-20] MEDS: Potassium Chloride 10 MEQ in Premix Bag 1 BAG IV SCH (09:56)
[2024-03-20] MEDS: Potassium Chloride 20 MEQ Tab.ER PO ONE (09:57)
[2024-03-20] MEDS ORDERED: Ondansetron 4 MG Tab.DIS PO PRN (11:43)
[2024-03-20] MEDS ORDERED: Ondansetron 4 MG/2 ML SDV IV PRN (11:43)
[2024-03-20] MEDS ORDERED: Folic Acid 1 MG Tab PO ONE (11:47)
[2024-03-20] MEDS ORDERED: Folic Acid 50 MG/10 ML MDV IV ONE (11:48)
[2024-03-20] MEDS: LORazepam 2 MG/ML SDV IVPUSH ONE (11:48)
[2024-03-20] MEDS: LORazepam 2 MG/ML SDV IVPUSH PRN (12:20)
[2024-03-20] MEDS: Thiamine 200 MG/2 ML MDV IVPUSH ONE (12:20)
[2024-03-20] MEDS: Sodium Chloride 0.9% 1,000 ML IV SCH (12:20)
[2024-03-20] MEDS: Pantoprazole 40 MG Tab.CR PO SCH (12:26)
[2024-03-20] MEDS: chlordiazePOXIDE 25 MG Cap PO SCH (12:26)
[2024-03-20 12:28] LABS: INR 1.08; PROTHROMBIN TIME 11.4 SECONDS (9.7-12.0)
[2024-03-20] MEDS: Folic Acid 50 MG/10 ML MDV IV ONE (12:42)
[2024-03-20] MEDS: Enoxaparin 40 MG/0.4 ML Syringe SUBCUT SCH (12:43)
[2024-03-20] MEDS: predniSONE 20 MG Tab PO ONE (14:05)
[2024-03-20] MEDS: oxyCODONE 5 MG Tab PO PRN (17:21)
[2024-03-20] MEDS: Acetaminophen 325 MG Tab PO PRN (20:48)
[2024-03-21 05:52] LABS: BASOPHILS PERCENT AUTO 0.3 % (0.0-1.0); HEMATOCRIT 31.6 % (42.0-52.0); HEMOGLOBIN 11.2 gm/dl (14.0-18.0); IMMATURE GRAN ABSOLUTE AUTO 0.04 K/mm3 (0.00-0.05); IMMATURE GRAN PERCENT AUTO 1.3 % (0.0-0.4); LYMPHOCYTES ABSOLUTE AUTO 0.5 K/mm3 (1.0-4.8); LYMPHOCYTES PERCENT AUTO 17.9 % (24.0-44.0); MEAN CORPUSCULAR HEMOGLOBIN 29.6 pg (28.0-32.0); MEAN CORPUSCULAR HGB CONC 35.4 g/dl (32.0-36.0); MEAN CORPUSCULAR VOLUME 83.4 fl (83.0-99.0); MEAN PLATELET VOLUME 10.3 fl (9.4-12.4); MONOCYTES ABSOLUTE AUTO 0.4 K/mm3 (0.0-0.8); MONOCYTES PERCENT AUTO 13.6 % (0.0-8.0); NEUTROPHILS PERCENT AUTO 66.9 % (41.0-71.0); PLATELET COUNT,PLT 58 K/mm3 (150-400); RED BLOOD CELL COUNT 3.79 M/mm3 (4.52-5.90); WHITE BLOOD CELL COUNT,WBC 3.01 K/mm3 (3.9-11.3)
[2024-03-21] MEDS: predniSONE 20 MG Tab PO SCH (06:03)
[2024-03-21 06:10] LABS: ALBUMIN 3.3 g/dl (3.4-5.0); BILIRUBIN TOTAL 1.7 mg/dL (0.2-1.0); BUN/CREATININE RATIO 8.3 (14-18); CALCIUM 7.7 mg/dL (8.5-10.1); CREATININE 0.6 mg/dL (0.7-1.3); EST CRCL DRUG DOSING (CG) 163.46 mL/min; MAGNESIUM 1.6 mg/dL (1.8-2.4); PROTEIN TOTAL,TP 6.5 g/dl (6.4-8.2)
[2024-03-21 06:14] LABS: SLIDE REVIEW ABNORMAL SMEAR
[2024-03-21 06:33] LABS: ANION GAP 15.4 (5-15)
[2024-03-21 06:34] LABS: POTASSIUM,K 3.4 mEq/L (3.5-5.1)
[2024-03-21] MEDS: Thiamine 100 MG Tab PO SCH (08:01)
[2024-03-21] MEDS: Folic Acid 1 MG Tab PO SCH (08:01)
[2024-03-21] MEDS: Citalopram 20 MG Tab PO SCH (08:01)
[2024-03-21] MEDS: Magnesium Sulfate/Water Premix 2 GM in Premix Bag 1 BAG IV ONE (10:11)
[2024-03-21] MEDS: Potassium Chloride 20 MEQ Tab.ER PO ONE (10:11)
[2024-03-21] MEDS: Multivitamin Tab PO SCH (10:11)
[2024-03-21] MEDS: Calcium Carbonate 500 MG Tab.Chew PO PRN (10:34)
[2024-03-21] MEDS: LORazepam 2 MG/ML SDV IVPUSH PRN (17:20)
[2024-03-22 05:32] LABS: BASOPHILS PERCENT AUTO 0.2 % (0.0-1.0); EOSINOPHILS PERCENT AUTO 0.3 % (0.0-6.0); HEMOGLOBIN 11.2 gm/dl (14.0-18.0); IMMATURE GRAN ABSOLUTE AUTO 0.03 K/mm3 (0.00-0.05); IMMATURE GRAN PERCENT AUTO 0.5 % (0.0-0.4); LYMPHOCYTES ABSOLUTE AUTO 1.6 K/mm3 (1.0-4.8); LYMPHOCYTES PERCENT AUTO 25.8 % (24.0-44.0); MEAN CORPUSCULAR HEMOGLOBIN 29.4 pg (28.0-32.0); MEAN PLATELET VOLUME 10.1 fl (9.4-12.4); MONOCYTES ABSOLUTE AUTO 0.4 K/mm3 (0.0-0.8); MONOCYTES PERCENT AUTO 6.6 % (0.0-8.0); NEUTROPHILS ABSOLUTE AUTO 4.1 K/mm3 (1.8-7.7); NEUTROPHILS PERCENT AUTO 66.6 % (41.0-71.0); PLATELET COUNT,PLT 68 K/mm3 (150-400); RED BLOOD CELL COUNT 3.81 M/mm3 (4.52-5.90); WHITE BLOOD CELL COUNT,WBC 6.19 K/mm3 (3.9-11.3)
[2024-03-22 06:05] LABS: ALBUMIN 3.4 g/dl (3.4-5.0); BILIRUBIN TOTAL 1.4 mg/dL (0.2-1.0); CALCIUM 8.6 mg/dL (8.5-10.1); CREATININE 0.7 mg/dL (0.7-1.3); EST CRCL DRUG DOSING (CG) 140.11 mL/min; MAGNESIUM 1.5 mg/dL (1.8-2.4); PROTEIN TOTAL,TP 6.8 g/dl (6.4-8.2)
[2024-03-22 06:40] LABS: ANION GAP 15.9 (5-15)
[2024-03-22 06:44] LABS: POTASSIUM,K 2.9 mEq/L (3.5-5.1)
[2024-03-22] MEDS ORDERED: Magnesium Sulfate (4.06 MEQ/ML) 5 GM/10 ML SDV IV ONE (07:17)
[2024-03-22] MEDS: Potassium Chloride 20 MEQ Tab.ER PO ONE ×2 (08:01→11:25)
[2024-03-22] MEDS: Magnesium Sulfate/Water Premix 2 GM in Premix Bag 1 BAG IV ONE (08:01)
[2024-03-22] MEDS ORDERED: Potassium Chloride 20 MEQ Tab.ER PO SCH (09:00)
[2024-03-22] MEDS: PHENobarbitaL sodium 260 MG in Sodium Chloride 0.9% 100 ML IV ONE (09:07)
[2024-03-23 05:45] LABS: A/G RATIO 0.9 (1-2); ALBUMIN 3.1 g/dl (3.4-5.0); ANION GAP 16.3 (5-15); BILIRUBIN TOTAL 1.4 mg/dL (0.2-1.0); BUN/CREATININE RATIO 18.6 (14-18); CALCIUM 8.6 mg/dL (8.5-10.1); CREATININE 0.7 mg/dL (0.7-1.3); EST CRCL DRUG DOSING (CG) 140.11 mL/min; MAGNESIUM 1.5 mg/dL (1.8-2.4); POTASSIUM,K 3.3 mEq/L (3.5-5.1); PROTEIN TOTAL,TP 6.6 g/dl (6.4-8.2)
[2024-03-23 05:47] LABS: BASOPHILS PERCENT AUTO 0.3 % (0.0-1.0); EOSINOPHILS PERCENT AUTO 0.3 % (0.0-6.0); HEMATOCRIT 30.6 % (42.0-52.0); HEMOGLOBIN 10.9 gm/dl (14.0-18.0); IMMATURE GRAN ABSOLUTE AUTO 0.05 K/mm3 (0.00-0.05); IMMATURE GRAN PERCENT AUTO 0.7 % (0.0-0.4); LYMPHOCYTES ABSOLUTE AUTO 1.8 K/mm3 (1.0-4.8); LYMPHOCYTES PERCENT AUTO 24.4 % (24.0-44.0); MEAN CORPUSCULAR HEMOGLOBIN 29.7 pg (28.0-32.0); MEAN CORPUSCULAR HGB CONC 35.6 g/dl (32.0-36.0); MEAN CORPUSCULAR VOLUME 83.4 fl (83.0-99.0); MEAN PLATELET VOLUME 10.5 fl (9.4-12.4); MONOCYTES ABSOLUTE AUTO 0.7 K/mm3 (0.0-0.8); MONOCYTES PERCENT AUTO 9.9 % (0.0-8.0); NEUTROPHILS ABSOLUTE AUTO 4.6 K/mm3 (1.8-7.7); NEUTROPHILS PERCENT AUTO 64.4 % (41.0-71.0); PLATELET COUNT,PLT 88 K/mm3 (150-400); RED BLOOD CELL COUNT 3.67 M/mm3 (4.52-5.90); WHITE BLOOD CELL COUNT,WBC 7.16 K/mm3 (3.9-11.3)
[2024-03-23 06:12] LABS: SLIDE REVIEW ABNORMAL SMEAR
[2024-03-23] MEDS ORDERED: Magnesium Sulfate/Water Premix 2 GM in Premix Bag 1 BAG IV ONE (07:30)
[2024-03-23] MEDS ORDERED: Potassium Chloride 20 MEQ Tab.ER PO ONE (09:00)
[2024-03-23] MEDS: Indomethacin 25 MG Cap PO SCH (09:57)
[2024-03-23] MEDS: Magnesium Sulfate/Water Premix 4 GM in Premix Bag 1 BAG IV ONE (09:58)
[2024-03-23] MEDS: Potassium Chloride 20 MEQ Tab.ER PO SCH (09:58)
[2024-03-23] MEDS: PHENobarbital Sodium 65 MG/ML SDV IVPUSH ONE (09:59)
[2024-03-23] MEDS: NS + KCl 20mEq/L 1,000 ML IV SCH (09:59)
[2024-03-24 05:32] LABS: A/G RATIO 0.7 (1-2); ALBUMIN 2.8 g/dl (3.4-5.0); CALCIUM 8.6 mg/dL (8.5-10.1); CREATININE 0.6 mg/dL (0.7-1.3); EST CRCL DRUG DOSING (CG) 163.46 mL/min; PROTEIN TOTAL,TP 6.6 g/dl (6.4-8.2)
[2024-03-24 07:41] LABS: HEMATOCRIT 29.5 % (42.0-52.0); HEMOGLOBIN 10.4 gm/dl (14.0-18.0); MEAN CORPUSCULAR HEMOGLOBIN 29.2 pg (28.0-32.0); MEAN CORPUSCULAR HGB CONC 35.3 g/dl (32.0-36.0); MEAN CORPUSCULAR VOLUME 82.9 fl (83.0-99.0); PLATELET COUNT,PLT 114 K/mm3 (150-400); RED BLOOD CELL COUNT 3.56 M/mm3 (4.52-5.90); WHITE BLOOD CELL COUNT,WBC 7.94 K/mm3 (3.9-11.3)
[2024-03-24 07:42] LABS: BASOPHILS PERCENT AUTO 0.1 % (0.0-1.0); EOSINOPHILS PERCENT AUTO 0.4 % (0.0-6.0); IMMATURE GRAN ABSOLUTE AUTO 0.06 K/mm3 (0.00-0.05); IMMATURE GRAN PERCENT AUTO 0.8 % (0.0-0.4); LYMPHOCYTES ABSOLUTE AUTO 1.8 K/mm3 (1.0-4.8); LYMPHOCYTES PERCENT AUTO 22.9 % (24.0-44.0); MEAN PLATELET VOLUME 10.2 fl (9.4-12.4); MONOCYTES ABSOLUTE AUTO 1.2 K/mm3 (0.0-0.8); MONOCYTES PERCENT AUTO 14.6 % (0.0-8.0); NEUTROPHILS ABSOLUTE AUTO 4.9 K/mm3 (1.8-7.7); NEUTROPHILS PERCENT AUTO 61.2 % (41.0-71.0)
[2024-03-24 08:04] LABS: SLIDE REVIEW ABNORMAL SMEAR
[2024-03-24] MEDS: Colchicine 0.6 MG Tab PO ONE ×2 (09:27→09:28)
[2024-03-24] MEDS: predniSONE 20 MG Tab PO SCH (12:49)
[2024-03-25 04:34] LABS: BASOPHILS PERCENT AUTO 0.1 % (0.0-1.0); EOSINOPHILS PERCENT AUTO 0.3 % (0.0-6.0); HEMATOCRIT 29.4 % (42.0-52.0); HEMOGLOBIN 10.2 gm/dl (14.0-18.0); IMMATURE GRAN ABSOLUTE AUTO 0.06 K/mm3 (0.00-0.05); IMMATURE GRAN PERCENT AUTO 0.8 % (0.0-0.4); LYMPHOCYTES ABSOLUTE AUTO 1.5 K/mm3 (1.0-4.8); LYMPHOCYTES PERCENT AUTO 19.2 % (24.0-44.0); MEAN CORPUSCULAR HEMOGLOBIN 28.9 pg (28.0-32.0); MEAN CORPUSCULAR HGB CONC 34.7 g/dl (32.0-36.0); MEAN CORPUSCULAR VOLUME 83.3 fl (83.0-99.0); MEAN PLATELET VOLUME 10.1 fl (9.4-12.4); MONOCYTES ABSOLUTE AUTO 1.3 K/mm3 (0.0-0.8); MONOCYTES PERCENT AUTO 17.4 % (0.0-8.0); NEUTROPHILS ABSOLUTE AUTO 4.8 K/mm3 (1.8-7.7); NEUTROPHILS PERCENT AUTO 62.2 % (41.0-71.0); PLATELET COUNT,PLT 161 K/mm3 (150-400); RED BLOOD CELL COUNT 3.53 M/mm3 (4.52-5.90); WHITE BLOOD CELL COUNT,WBC 7.65 K/mm3 (3.9-11.3)
[2024-03-25 05:25] LABS: A/G RATIO 0.8 (1-2); ALBUMIN 2.9 g/dl (3.4-5.0); ANION GAP 16.2 (5-15); BILIRUBIN TOTAL 0.7 mg/dL (0.2-1.0); BUN/CREATININE RATIO 21.4 (14-18); C-REACTIVE PROTEIN 4.82 mg/dL (<0.30); CREATININE 0.7 mg/dL (0.7-1.3); EST CRCL DRUG DOSING (CG) 140.11 mL/min; MAGNESIUM 1.6 mg/dL (1.8-2.4); POTASSIUM,K 4.2 mEq/L (3.5-5.1); PROTEIN TOTAL,TP 6.7 g/dl (6.4-8.2)
[2024-03-25] MEDS: Magnesium Sulfate/Water Premix 4 GM in Premix Bag 1 BAG IV ONE (08:04)
[2024-03-25] MEDS: Colchicine 0.6 MG Tab PO SCH (08:09)
[2024-03-25 12:45] VITALS: BP 125/81; PULSE 86
== END 2024-03-25 12:48 | disposition home or self-care (01) | DRG 897 ==
LOC: JD.ED 01:55 → JD.ICU 11:01
PROVIDERS: ADMIT Family Medicine; ATTEND Family Medicine
DX: F10.139 Alcohol abuse with withdrawal, unspecified (principal); D61.818 Other pancytopenia; F10.129 Alcohol abuse with intoxication, unspecified; I10 Essential (primary) hypertension; K52.9 Noninfective gastroenteritis and colitis, unspecified; K21.9 Gastro-esophageal reflux disease without esophagitis; M10.9 Gout, unspecified; E87.6 Hypokalemia; E83.42 Hypomagnesemia; R11.14 Bilious vomiting; Z79.899 Other long term (current) drug therapy; Z86.16 Personal history of COVID-19; Z98.890 Other specified postprocedural states; Z90.49 Acquired absence of other specified parts of digestive tract
CPT/HCPCS: 36415; 73562-26-LT; 73562-LT; 80053; 80306; 80307; 82140; 83735; 84100; 84550; 85025; 85610; 85652; 86140; 93005; 93010; 96361; 96365; 96366; 96367; 96375; 96376; 97116-GP; 97162-GP; 99284; 99285-25; A9270-GY; J2060; J2405; J2560; J3411; J3475; J3480; J3490; J7030; J7512

== ENCOUNTER 2024-04-14 13:19 | Emergency (ER) | payer OTHER ==
[2024-04-14 13:30] VITALS: BP 165/94; PULSE 128
[2024-04-14] MEDS: LORazepam 2 MG/ML SDV IVPUSH ONE ×2 (14:13→17:08)
[2024-04-14] MEDS: Sodium Chloride 0.9% 1,000 ML IV SCH ×2 (14:13→15:51)
[2024-04-14] MEDS: Ondansetron 4 MG/2 ML SDV IVPUSH ONE ×2 (14:13→17:07)
[2024-04-14] MEDS: Thiamine 200 MG/2 ML MDV IVPUSH ONE (14:14)
[2024-04-14] MEDS: Folic Acid 1 MG Tab PO ONE (14:15)
[2024-04-14 14:26] LABS: BASOPHILS PERCENT AUTO 0.2 % (0.0-1.0); EOSINOPHILS PERCENT AUTO 0.2 % (0.0-6.0); HEMATOCRIT 39.6 % (42.0-52.0); HEMOGLOBIN 13.8 gm/dl (14.0-18.0); IMMATURE GRAN ABSOLUTE AUTO 0.03 K/mm3 (0.00-0.05); IMMATURE GRAN PERCENT AUTO 0.3 % (0.0-0.4); LYMPHOCYTES ABSOLUTE AUTO 1.8 K/mm3 (1.0-4.8); LYMPHOCYTES PERCENT AUTO 15.3 % (24.0-44.0); MEAN CORPUSCULAR HEMOGLOBIN 28.9 pg (28.0-32.0); MEAN CORPUSCULAR HGB CONC 34.8 g/dl (32.0-36.0); MEAN CORPUSCULAR VOLUME 82.8 fl (83.0-99.0); MEAN PLATELET VOLUME 9.4 fl (9.4-12.4); MONOCYTES ABSOLUTE AUTO 0.6 K/mm3 (0.0-0.8); MONOCYTES PERCENT AUTO 5.4 % (0.0-8.0); NEUTROPHILS ABSOLUTE AUTO 9.3 K/mm3 (1.8-7.7); NEUTROPHILS PERCENT AUTO 78.6 % (41.0-71.0); PLATELET COUNT,PLT 184 K/mm3 (150-400); RED BLOOD CELL COUNT 4.78 M/mm3 (4.52-5.90)
[2024-04-14 14:58] LABS: A/G RATIO 1.1 (1-2); ALBUMIN 4.2 g/dl (3.4-5.0); ANION GAP 23.5 (5-15); BILIRUBIN TOTAL 2.7 mg/dL (0.2-1.0); BUN/CREATININE RATIO 16.3 (14-18); CALCIUM 9.8 mg/dL (8.5-10.1); CREATININE 0.8 mg/dL (0.7-1.3); EST CRCL DRUG DOSING (CG) 122.6 mL/min; MAGNESIUM 1.5 mg/dL (1.8-2.4); POTASSIUM,K 3.5 mEq/L (3.5-5.1); PROTEIN TOTAL,TP 7.9 g/dl (6.4-8.2); TSH 3.105 uIU/mL (0.358-3.74)
[2024-04-14] MEDS: Magnesium Sulf/Wat 2 GM/50 mL 2 GM/50 ML BAG IV SCH (15:51)
[2024-04-14] MEDS: Magnesium Oxide 400 MG Tab PO ONE (15:53)
[2024-04-14] MEDS: predniSONE 20 MG Tab PO ONE (15:54)
[2024-04-14] MEDS: Lactated Ringers 1,000 ML IV SCH (17:32)
[2024-04-14 19:00] LABS: BARBITURATE SCREEN,URINE NEGATIVE (CUTOFF=200); BENZODIAZEPINES SCREEN,URINE PRESUMPTIVE POSITIVE (CUTOFF=150); BUPRENORPHINE SCREEN,URINE NEGATIVE (CUTOFF=10); METHADONE SCREEN, URINE NEGATIVE (CUT0FF=200); METHAMPHETAMINES SCREEN, URINE NEGATIVE (CUTOFF=500); OXYCODONE SCREEN,URINE NEGATIVE (CUT0FF=100); THC SCREEN,URINE 20 NG/ML NEGATIVE (CUTOFF=50)
[2024-04-14 19:31] LABS: AMPHETAMINES SCREEN, URINE NEGATIVE (CUTOFF=500)
== END 2024-04-14 19:00 | disposition home or self-care (01) ==
LOC: JD.ED 13:19
DX: F10.930 Alcohol use, unspecified with withdrawal, uncomplicated (principal); M1A.0690 Idiopathic chronic gout, unspecified knee, without tophus (tophi); E83.42 Hypomagnesemia; E86.0 Dehydration; I10 Essential (primary) hypertension; K21.9 Gastro-esophageal reflux disease without esophagitis; Z86.16 Personal history of COVID-19; Z90.49 Acquired absence of other specified parts of digestive tract; Z88.8 Allergy status to other drugs, medicaments and biological substances; Z79.52 Long term (current) use of systemic steroids; Z79.899 Other long term (current) drug therapy; Y90.9 Presence of alcohol in blood, level not specified
CPT/HCPCS: 36415; 80053; 80143; 80179; 80306; 80307; 83735; 84443; 84550; 85025; 93005; 96361; 96365; 96366; 96375; 96376; 99285; A9270; J2060; J2405; J3411; J3475; J7030; J7120; J7512

== ENCOUNTER 2024-05-17 07:03 | Emergency (ER) | payer OTHER ==
[2024-05-17] MEDS: Ondansetron 4 MG/2 ML SDV IVPUSH ONE (07:42)
[2024-05-17] MEDS: Sodium Chloride 0.9% 2,000 ML IV ONE (07:42)
[2024-05-17] MEDS: droPERidol 2.5 MG/ML SDV IV STA (07:42)
[2024-05-17 07:52] LABS: BASOPHILS ABSOLUTE AUTO 0.1 K/mm3 (0.0-0.2); BASOPHILS PERCENT AUTO 0.5 % (0.0-1.0); EOSINOPHILS ABSOLUTE AUTO 0.1 K/mm3 (0.0-0.4); EOSINOPHILS PERCENT AUTO 0.8 % (0.0-6.0); HEMATOCRIT 41.5 % (42.0-52.0); HEMOGLOBIN 14.2 gm/dl (14.0-18.0); IMMATURE GRAN ABSOLUTE AUTO 0.08 K/mm3 (0.00-0.05); IMMATURE GRAN PERCENT AUTO 0.9 % (0.0-0.4); MEAN CORPUSCULAR HEMOGLOBIN 30.3 pg (28.0-32.0); MEAN CORPUSCULAR HGB CONC 34.2 g/dl (32.0-36.0); MONOCYTES ABSOLUTE AUTO 0.8 K/mm3 (0.0-0.8); MONOCYTES PERCENT AUTO 8.6 % (0.0-8.0); NEUTROPHILS ABSOLUTE AUTO 7.3 K/mm3 (1.8-7.7); NEUTROPHILS PERCENT AUTO 78.2 % (41.0-71.0); RED BLOOD CELL COUNT 4.69 M/mm3 (4.52-5.90); WHITE BLOOD CELL COUNT,WBC 9.31 K/mm3 (3.9-11.3)
[2024-05-17] MEDS: Thiamine 200 MG/2 ML MDV IVPUSH ONE (08:02)
[2024-05-17 08:15] LABS: A/G RATIO 0.8 (1-2); ALANINE AMINOTRANSFERASE,ALT 50 U/L (16-63); ALBUMIN 3.7 g/dl (3.4-5.0); ALKALINE PHOSPHATASE 177 U/L (46-116); ANION GAP 27.2 (5-15); ASPARTATE AMNIOTRANSFERASE,AST 128 U/L (15-37); BILIRUBIN TOTAL 3.4 mg/dL (0.2-1.0); BLOOD UREA NITROGEN,BUN 4 mg/dL (7-18); CALCIUM 8.1 mg/dL (8.5-10.1); CARBON DIOXIDE,CO2 18 mEq/L (21-32); CHLORIDE,CL 91 mEq/L (98-107); CREATINE KINASE,CK 97 U/L (39-308); CREATININE 0.8 mg/dL (0.7-1.3); ESTIMATED GFR 108 mL/min (>60); ETHANOL BLOOD MEDICAL 0.09 gm% (0.00); GLUCOSE RANDOM 89 mg/dL (70-99); LIPASE 101 U/L (16-77); MAGNESIUM 1.1 mg/dL (1.8-2.4); POTASSIUM,K 3.2 mEq/L (3.5-5.1); PROTEIN TOTAL,TP 8.1 g/dl (6.4-8.2); SODIUM,NA 133 mEq/L (136-145)
[2024-05-17 08:17] LABS: MEAN CORPUSCULAR VOLUME 88.5 fl (83.0-99.0)
[2024-05-17 08:23] LABS: PLATELET COUNT,PLT 76 K/mm3 (150-400)
[2024-05-17 08:28] LABS: ACETAMINOPHEN 0 ug/mL (10-30); TROPONIN I HIGH SENSITIVITY < 4 pg/mL (<=76)
[2024-05-17] MEDS: Potassium Chloride 10 MEQ in Premix Bag 1 BAG IV SCH (08:50)
[2024-05-17] MEDS: Magnesium Sulf/Wat 4 GM/50 mL 4 GM in Premix Bag 1 BAG IV ONE (08:52)
[2024-05-17 09:01] LABS: SLIDE REVIEW ABNORMAL SMEAR
[2024-05-17] MEDS: methylPREDNISolone Sodium Succinate 125 MG/2 ML SDV IVPUSH ONE (09:17)
[2024-05-17] MEDS: Indomethacin 25 MG Cap PO ONE (09:17)
[2024-05-17] MEDS: Colchicine 0.6 MG Tab PO ONE (09:17)
[2024-05-17] MEDS: Sodium Chloride 0.9% 1,000 ML IV ONE (09:50)
[2024-05-17 10:12] LABS: BARBITURATE SCREEN,URINE NEGATIVE (CUTOFF=200); BENZODIAZEPINES SCREEN,URINE NEGATIVE (CUTOFF=150); BUPRENORPHINE SCREEN,URINE NEGATIVE (CUTOFF=10); METHADONE SCREEN, URINE NEGATIVE (CUT0FF=200); METHAMPHETAMINES SCREEN, URINE NEGATIVE (CUTOFF=500); OXYCODONE SCREEN,URINE NEGATIVE (CUT0FF=100); THC SCREEN,URINE 20 NG/ML PRESUMPTIVE POSITIVE (CUTOFF=50)
[2024-05-17 10:23] LABS: AMPHETAMINES SCREEN, URINE NEGATIVE (CUTOFF=500)
[2024-05-17 11:25] VITALS: BP 168/96; PULSE 84
== END 2024-05-17 11:25 | disposition home or self-care (01) ==
LOC: JD.ED 07:03
DX: F10.230 Alcohol dependence with withdrawal, uncomplicated (principal); M1A.0690 Idiopathic chronic gout, unspecified knee, without tophus (tophi); E83.42 Hypomagnesemia; E87.6 Hypokalemia; I10 Essential (primary) hypertension; Z86.16 Personal history of COVID-19; Z88.8 Allergy status to other drugs, medicaments and biological substances; Z79.899 Other long term (current) drug therapy; Y90.9 Presence of alcohol in blood, level not specified
CPT/HCPCS: 36415; 80053; 80143; 80179; 80306; 80307; 82550; 83690; 83735; 84484; 84550; 85025; 87428; 93005; 96361; 96365; 96366; 96368; 96375; 99285; A9270; J1790; J2405; J2919; J3411; J3475; J3480; J7030

== ENCOUNTER 2024-07-05 09:46 | Emergency (ER) | payer OTHER ==
[2024-07-05] MEDS ORDERED: Sodium Chloride 0.9% 10 ML Syringe FLUSH PRN (10:30)
[2024-07-05] MEDS: LORazepam 2 MG/ML SDV IVPUSH ONE (10:41)
[2024-07-05] MEDS: Sodium Chloride 0.9% 1,000 ML IV ONE (10:41)
[2024-07-05] MEDS: Ondansetron 4 MG/2 ML SDV IVPUSH ONE (10:41)
[2024-07-05 10:59] LABS: BASOPHILS PERCENT AUTO 0.3 % (0.0-1.0); EOSINOPHILS ABSOLUTE AUTO 0.1 K/mm3 (0.0-0.4); HEMATOCRIT 31.4 % (42.0-52.0); IMMATURE GRAN ABSOLUTE AUTO 0.04 K/mm3 (0.00-0.05); IMMATURE GRAN PERCENT AUTO 0.7 % (0.0-0.4); LYMPHOCYTES ABSOLUTE AUTO 0.6 K/mm3 (1.0-4.8); LYMPHOCYTES PERCENT AUTO 10.1 % (24.0-44.0); MEAN CORPUSCULAR HEMOGLOBIN 29.8 pg (28.0-32.0); MEAN CORPUSCULAR HGB CONC 37.3 g/dl (32.0-36.0); MEAN CORPUSCULAR VOLUME 79.9 fl (83.0-99.0); MEAN PLATELET VOLUME 9.5 fl (9.4-12.4); MONOCYTES ABSOLUTE AUTO 1.2 K/mm3 (0.0-0.8); MONOCYTES PERCENT AUTO 18.9 % (0.0-8.0); NEUTROPHILS ABSOLUTE AUTO 4.2 K/mm3 (1.8-7.7); RED BLOOD CELL COUNT 3.93 M/mm3 (4.52-5.90); WHITE BLOOD CELL COUNT,WBC 6.15 K/mm3 (3.9-11.3)
[2024-07-05 11:01] LABS: HEMOGLOBIN 11.7 gm/dl (14.0-18.0)
[2024-07-05 11:02] LABS: PLATELET COUNT,PLT 240 K/mm3 (150-400)
[2024-07-05 11:14] LABS: A/G RATIO 0.9 (1-2); ALBUMIN 3.6 g/dl (3.4-5.0); ANION GAP 16.9 (5-15); BILIRUBIN TOTAL 2.3 mg/dL (0.2-1.0); BUN/CREATININE RATIO 11.1 (14-18); CALCIUM 8.7 mg/dL (8.5-10.1); CREATININE 0.9 mg/dL (0.7-1.3); EST CRCL DRUG DOSING (CG) 112.21 mL/min; PROTEIN TOTAL,TP 7.6 g/dl (6.4-8.2); TSH 4.02 uIU/mL (0.358-3.74)
[2024-07-05 11:26] LABS: POTASSIUM,K 1.9 mEq/L (3.5-5.1)
[2024-07-05] MEDS: Potassium Chloride 20 MEQ Tab.ER PO ONE (11:40)
[2024-07-05] MEDS: Potassium Chloride 10 MEQ in Premix Bag 1 BAG IV SCH (11:40)
[2024-07-05] MEDS: Sodium Chloride 0.9% 1,000 ML IV SCH (11:41)
[2024-07-05] MEDS: Famotidine 20 MG/2 ML SDV IVPUSH ONE (11:55)
[2024-07-05 13:56] LABS: BARBITURATE SCREEN,URINE NEGATIVE (CUTOFF=200); BENZODIAZEPINES SCREEN,URINE PRESUMPTIVE POSITIVE (CUTOFF=150); BUPRENORPHINE SCREEN,URINE NEGATIVE (CUTOFF=10); METHADONE SCREEN, URINE NEGATIVE (CUT0FF=200); METHAMPHETAMINES SCREEN, URINE NEGATIVE (CUTOFF=500); OXYCODONE SCREEN,URINE NEGATIVE (CUT0FF=100); THC SCREEN,URINE 20 NG/ML NEGATIVE (CUTOFF=50)
[2024-07-05 13:58] LABS: AMPHETAMINES SCREEN, URINE NEGATIVE (CUTOFF=500)
[2024-07-05 14:57] LABS: A/G RATIO 0.9 (1-2); ANION GAP 12.3 (5-15); BILIRUBIN TOTAL 2.1 mg/dL (0.2-1.0); BUN/CREATININE RATIO 12.2 (14-18); CALCIUM 7.8 mg/dL (8.5-10.1); CREATININE 0.9 mg/dL (0.7-1.3); EST CRCL DRUG DOSING (CG) 112.21 mL/min; PROTEIN TOTAL,TP 6.2 g/dl (6.4-8.2)
[2024-07-05 15:08] LABS: POTASSIUM,K 2.3 mEq/L (3.5-5.1)
[2024-07-05] MEDS: Magnesium Sulfate 2 GM/50 mL 2 GM in Premix Bag 1 BAG IV ONE (15:12)
[2024-07-05 17:50] VITALS: BP 120/69; PULSE 90
== END 2024-07-05 17:45 | disposition home or self-care (01) ==
LOC: JD.ED 09:46
DX: F10.930 Alcohol use, unspecified with withdrawal, uncomplicated (principal); F10.230 Alcohol dependence with withdrawal, uncomplicated; E86.0 Dehydration; E87.6 Hypokalemia; I10 Essential (primary) hypertension; E83.42 Hypomagnesemia; Z88.8 Allergy status to other drugs, medicaments and biological substances; Z79.899 Other long term (current) drug therapy; Z86.16 Personal history of COVID-19; Z90.49 Acquired absence of other specified parts of digestive tract
CPT/HCPCS: 36415; 80053; 80143; 80179; 80306; 80307; 83735; 84443; 84484; 85025; 93005; 96361; 96365; 96366; 96367; 96375; 99285; A9270; J2060; J2405; J3475; J3480; J7030; 93010; 99284

== ENCOUNTER 2024-07-20 07:43 | Inpatient (IN) | payer OTHER ==
[2024-07-20 08:22] LABS: BASOPHILS PERCENT AUTO 0.2 % (0.0-1.0); EOSINOPHILS PERCENT AUTO 0.3 % (0.0-6.0); HEMATOCRIT 22.4 % (42.0-52.0); IMMATURE GRAN ABSOLUTE AUTO 0.02 K/mm3 (0.00-0.05); IMMATURE GRAN PERCENT AUTO 0.3 % (0.0-0.4); LYMPHOCYTES ABSOLUTE AUTO 0.8 K/mm3 (1.0-4.8); LYMPHOCYTES PERCENT AUTO 14.4 % (24.0-44.0); MEAN CORPUSCULAR HEMOGLOBIN 29.7 pg (28.0-32.0); MEAN CORPUSCULAR HGB CONC 34.4 g/dl (32.0-36.0); MEAN CORPUSCULAR VOLUME 86.5 fl (83.0-99.0); MEAN PLATELET VOLUME 10.8 fl (9.4-12.4); MONOCYTES ABSOLUTE AUTO 0.3 K/mm3 (0.0-0.8); MONOCYTES PERCENT AUTO 4.8 % (0.0-8.0); NEUTROPHILS ABSOLUTE AUTO 4.7 K/mm3 (1.8-7.7); PLATELET COUNT,PLT 70 K/mm3 (150-400); RED BLOOD CELL COUNT 2.59 M/mm3 (4.52-5.90); WHITE BLOOD CELL COUNT,WBC 5.83 K/mm3 (3.9-11.3)
[2024-07-20] MEDS: Sodium Chloride 0.9% 10 ML Syringe FLUSH PRN (08:32)
[2024-07-20] MEDS: methylPREDNISolone Sodium Succinate 125 MG/2 ML SDV IVPUSH ONE (08:32)
[2024-07-20] MEDS: Ondansetron 4 MG/2 ML SDV IVPUSH ONE (08:32)
[2024-07-20] MEDS: Sodium Chloride 0.9% 1,000 ML IV ONE (08:32)
[2024-07-20] MEDS: LORazepam 2 MG/ML SDV IVPUSH ONE (08:33)
[2024-07-20 08:51] LABS: HEMOGLOBIN 7.7 gm/dl (14.0-18.0)
[2024-07-20 08:52] LABS: A/G RATIO 0.7 (1-2); ALBUMIN 2.6 g/dl (3.4-5.0); ANION GAP 16.4 (5-15); CALCIUM 8.1 mg/dL (8.5-10.1); EST CRCL DRUG DOSING (CG) 98.08 mL/min; PROTEIN TOTAL,TP 6.2 g/dl (6.4-8.2); TSH 3.301 uIU/mL (0.358-3.74)
[2024-07-20 08:55] LABS: SLIDE REVIEW ABNORMAL SMEAR
[2024-07-20 08:59] LABS: POTASSIUM,K 2.4 mEq/L (3.5-5.1)
[2024-07-20] MEDS: Sodium Chloride 0.9% 1,000 ML IV SCH (09:20)
[2024-07-20 09:39] LABS: BARBITURATE SCREEN,URINE NEGATIVE (CUTOFF=200); BENZODIAZEPINES SCREEN,URINE NEGATIVE (CUTOFF=150); BUPRENORPHINE SCREEN,URINE NEGATIVE (CUTOFF=10); METHADONE SCREEN, URINE NEGATIVE (CUT0FF=200); METHAMPHETAMINES SCREEN, URINE NEGATIVE (CUTOFF=500); OXYCODONE SCREEN,URINE NEGATIVE (CUT0FF=100); THC SCREEN,URINE 20 NG/ML NEGATIVE (CUTOFF=50)
[2024-07-20] MEDS: Potassium Chloride 10 MEQ in Premix Bag 1 BAG IV SCH (09:40)
[2024-07-20 09:52] LABS: AMPHETAMINES SCREEN, URINE NEGATIVE (CUTOFF=500)
[2024-07-20] MEDS: Potassium Chloride 20 MEQ Tab.ER PO ONE (09:53)
[2024-07-20] MEDS: Pantoprazole 40 MG Vial IVPUSH ONE (10:10)
[2024-07-20 10:26] LABS: FOLIC ACID 4.2 ng/mL (8.6-58.9)
[2024-07-20] MEDS: Magnesium Sulfate 2 GM/50 mL 2 GM in Premix Bag 1 BAG IV ONE (10:56)
[2024-07-20] MEDS: Pantoprazole 40 MG Tab.CR PO SCH (11:17)
[2024-07-20] MEDS: Folic Acid 50 MG/10 ML MDV IV ONE ×2 (11:17→11:26)
[2024-07-20] MEDS: Colchicine 0.6 MG Tab PO ONE (14:08)
[2024-07-20] MEDS: Morphine 2 MG/ML SYRINGE IVPUSH ONE (14:08)
[2024-07-20] MEDS ORDERED: LORazepam 2 MG/ML SDV IVPUSH PRN (14:12)
[2024-07-20] MEDS ORDERED: LORazepam 1 MG Tab PO PRN (14:12)
[2024-07-20] MEDS ORDERED: Melatonin 3 MG Tab PO PRN (14:15)
[2024-07-20] MEDS ORDERED: Morphine 2 MG/ML SYRINGE IVPUSH PRN (14:15)
[2024-07-20] MEDS ORDERED: Acetaminophen/HYDROcodone 325-5 MG Tab PO PRN (14:15)
[2024-07-20] MEDS ORDERED: Sennosides/Docusate Sodium 50-8.6 MG Tab PO PRN (14:15)
[2024-07-20] MEDS ORDERED: Ondansetron 4 MG/2 ML SDV IV PRN (14:15)
[2024-07-20] MEDS: Magnesium Sulfat/D5W 1GM/100ML 1 GM in Premix Bag 1 BAG IV ONE (14:55)
[2024-07-20] MEDS: predniSONE 10 MG Tab PO ONE (14:59)
[2024-07-20] MEDS: Thiamine 100 MG Tab PO SCH (20:08)
[2024-07-20] MEDS: Folic Acid 1 MG Tab PO SCH (20:08)
[2024-07-21 04:26] LABS: HEMATOCRIT 21.5 % (42.0-52.0); IMMATURE GRAN ABSOLUTE AUTO 0.01 K/mm3 (0.00-0.05); IMMATURE GRAN PERCENT AUTO 0.2 % (0.0-0.4); LYMPHOCYTES ABSOLUTE AUTO 0.4 K/mm3 (1.0-4.8); LYMPHOCYTES PERCENT AUTO 7.7 % (24.0-44.0); MEAN CORPUSCULAR HEMOGLOBIN 29.4 pg (28.0-32.0); MEAN CORPUSCULAR HGB CONC 33.5 g/dl (32.0-36.0); MEAN CORPUSCULAR VOLUME 87.8 fl (83.0-99.0); MEAN PLATELET VOLUME 10.5 fl (9.4-12.4); MONOCYTES ABSOLUTE AUTO 0.4 K/mm3 (0.0-0.8); MONOCYTES PERCENT AUTO 8.6 % (0.0-8.0); NEUTROPHILS ABSOLUTE AUTO 3.8 K/mm3 (1.8-7.7); NEUTROPHILS PERCENT AUTO 83.5 % (41.0-71.0); PLATELET COUNT,PLT 87 K/mm3 (150-400); RED BLOOD CELL COUNT 2.45 M/mm3 (4.52-5.90); WHITE BLOOD CELL COUNT,WBC 4.53 K/mm3 (3.9-11.3)
[2024-07-21 05:03] LABS: A/G RATIO 0.6 (1-2); ALBUMIN 2.4 g/dl (3.4-5.0); ANION GAP 16.2 (5-15); BILIRUBIN TOTAL 1.3 mg/dL (0.2-1.0); BUN/CREATININE RATIO 18.3 (14-18); CALCIUM 8.2 mg/dL (8.5-10.1); CREATININE 0.6 mg/dL (0.7-1.3); EST CRCL DRUG DOSING (CG) 163.46 mL/min; MAGNESIUM 1.5 mg/dL (1.8-2.4); PHOSPHORUS 1.6 mg/dL (2.6-4.7); POTASSIUM,K 3.2 mEq/L (3.5-5.1); PROTEIN TOTAL,TP 6.4 g/dl (6.4-8.2)
[2024-07-21 05:07] LABS: HEMOGLOBIN 7.2 gm/dl (14.0-18.0)
[2024-07-21 05:13] LABS: SLIDE REVIEW ABNORMAL SMEAR
[2024-07-21] MEDS: predniSONE 20 MG Tab PO SCH (07:07)
[2024-07-21] MEDS: Acetaminophen 325 MG Tab PO PRN (08:42)
[2024-07-21] MEDS: Citalopram 20 MG Tab PO SCH (08:42)
[2024-07-21] MEDS: Enoxaparin 40 MG/0.4 ML Syringe SUBCUT SCH (08:43)
[2024-07-21] MEDS: Magnesium Sulf/Wat 4 GM/50 mL 4 GM in Premix Bag 1 BAG IV ONE (09:54)
[2024-07-21] MEDS: Potassium Chloride 10 MEQ in Premix Bag 1 BAG IV SCH (09:55)
[2024-07-21] MEDS: Sodium Chloride 0.9% 1,000 ML IV SCH (10:28)
[2024-07-21] MEDS: Sodium Phosphate 30 MMOLE in Sodium Chloride 0.9% 250 ML IV ONE (12:00)
[2024-07-22 04:26] LABS: BASOPHILS PERCENT AUTO 0.2 % (0.0-1.0); EOSINOPHILS PERCENT AUTO 0.2 % (0.0-6.0); HEMATOCRIT 21.1 % (42.0-52.0); IMMATURE GRAN ABSOLUTE AUTO 0.06 K/mm3 (0.00-0.05); IMMATURE GRAN PERCENT AUTO 0.9 % (0.0-0.4); LYMPHOCYTES ABSOLUTE AUTO 1.9 K/mm3 (1.0-4.8); LYMPHOCYTES PERCENT AUTO 28.1 % (24.0-44.0); MEAN CORPUSCULAR HEMOGLOBIN 29.2 pg (28.0-32.0); MEAN CORPUSCULAR HGB CONC 33.6 g/dl (32.0-36.0); MEAN CORPUSCULAR VOLUME 86.8 fl (83.0-99.0); MEAN PLATELET VOLUME 10.3 fl (9.4-12.4); MONOCYTES ABSOLUTE AUTO 1.1 K/mm3 (0.0-0.8); NEUTROPHILS ABSOLUTE AUTO 3.6 K/mm3 (1.8-7.7); NEUTROPHILS PERCENT AUTO 54.6 % (41.0-71.0); PLATELET COUNT,PLT 144 K/mm3 (150-400); RED BLOOD CELL COUNT 2.43 M/mm3 (4.52-5.90); WHITE BLOOD CELL COUNT,WBC 6.61 K/mm3 (3.9-11.3)
[2024-07-22 04:46] LABS: A/G RATIO 0.6 (1-2); ALBUMIN 2.3 g/dl (3.4-5.0); ANION GAP 10.8 (5-15); BILIRUBIN TOTAL 0.6 mg/dL (0.2-1.0); BUN/CREATININE RATIO 15.7 (14-18); CALCIUM 8.2 mg/dL (8.5-10.1); CREATININE 0.7 mg/dL (0.7-1.3); EST CRCL DRUG DOSING (CG) 140.11 mL/min; HEMOGLOBIN 7.1 gm/dl (14.0-18.0); MAGNESIUM 1.3 mg/dL (1.8-2.4); POTASSIUM,K 2.8 mEq/L (3.5-5.1); PROTEIN TOTAL,TP 5.9 g/dl (6.4-8.2)
[2024-07-22] MEDS: Potassium Chloride 20 MEQ Tab.ER PO SCH (09:39)
[2024-07-22] MEDS: Magnesium Sulf/Wat 4 GM/50 mL 4 GM in Premix Bag 1 BAG IV ONE (09:39)
[2024-07-22 12:42] VITALS: BP 150/94; PULSE 84
[2024-07-23 18:43] LABS: VITAMIN B1, WHOLE BLOOD 164 nmol/L (70-180)
== END 2024-07-22 13:05 | disposition home or self-care (01) | DRG 897 ==
LOC: JD.ED 07:43 → JD.ICU 10:02 → OBSVTOIN 10:02 → INTOOBSV 10:02
PROVIDERS: ADMIT Student in an Organized Health Care Education/Training Program; ATTEND Family Medicine
PROC: HZ2ZZZZ Detoxification Services for Substance Abuse Treatment (ICD-10-PCS; principal; 2024-07-20)
DX: F10.139 Alcohol abuse with withdrawal, unspecified (principal); E87.1 Hypo-osmolality and hyponatremia; E87.6 Hypokalemia; M10.9 Gout, unspecified; I10 Essential (primary) hypertension; K21.9 Gastro-esophageal reflux disease without esophagitis; E86.0 Dehydration; D64.89 Other specified anemias; K76.0 Fatty (change of) liver, not elsewhere classified; F41.9 Anxiety disorder, unspecified; E80.6 Other disorders of bilirubin metabolism; D69.6 Thrombocytopenia, unspecified; E53.8 Deficiency of other specified B group vitamins; E83.39 Other disorders of phosphorus metabolism; Z88.8 Allergy status to other drugs, medicaments and biological substances; Z79.899 Other long term (current) drug therapy; Z90.49 Acquired absence of other specified parts of digestive tract; Z98.890 Other specified postprocedural states; Z86.16 Personal history of COVID-19
CPT/HCPCS: 36415; 70450; 70450-26; 80053; 80143; 80179; 80306; 80307; 82607; 82746; 83540; 83735; 84100; 84425; 84443; 84466; 85025; 93005; 94761; 96361; 96365; 96375; 97110-GP; 97116-GP; 97161-GP; 97530-GP; 99285-25; A9270-GY; J1650; J2060; J2270; J2405; J2470; J2919; J3475; J3480; J3490; J7030; J7050; J7512

== ENCOUNTER 2024-09-02 15:03 | Inpatient (IN) | payer OTHER ==
[2024-09-02] MEDS: Thiamine 200 MG/2 ML MDV IVPUSH ONE (15:56)
[2024-09-02] MEDS: Multivitamins with Minerals/Folic Acid/Lutein/Zeaxanth Tab PO STA (15:59)
[2024-09-02 16:10] LABS: BASOPHILS ABSOLUTE AUTO 0.0 K/mm3 (0.0-0.2); BASOPHILS PERCENT AUTO 0.3 % (0.0-1.0); EOSINOPHILS ABSOLUTE AUTO 0.0 K/mm3 (0.0-0.4); EOSINOPHILS PERCENT AUTO 0.3 % (0.0-6.0); IMMATURE GRAN ABSOLUTE AUTO 0.02 K/mm3 (0.00-0.05); IMMATURE GRAN PERCENT AUTO 0.3 % (0.0-0.4); LYMPHOCYTES ABSOLUTE AUTO 2.3 K/mm3 (1.0-4.8); LYMPHOCYTES PERCENT AUTO 31.0 % (24.0-44.0); MEAN PLATELET VOLUME 9.4 fl (9.4-12.4); MONOCYTES ABSOLUTE AUTO 0.4 K/mm3 (0.0-0.8); MONOCYTES PERCENT AUTO 4.9 % (0.0-8.0); NEUTROPHILS ABSOLUTE AUTO 4.7 K/mm3 (1.8-7.7); NEUTROPHILS PERCENT AUTO 63.2 % (41.0-71.0); NRBC ABSOLUTE 0.00 (0.00-0.02); NRBC PERCENT 0.0 % (0.0-0.2); PLATELET COUNT,PLT 227 K/mm3 (150-400); RED BLOOD CELL COUNT 5.04 M/mm3 (4.52-5.90); WHITE BLOOD CELL COUNT,WBC 7.48 K/mm3 (3.9-11.3)
[2024-09-02 16:28] LABS: INR 1.05
[2024-09-02 16:34] LABS: A/G RATIO 1.1 (1-2); ALANINE AMINOTRANSFERASE,ALT 64.0 U/L (16-63); ASPARTATE AMNIOTRANSFERASE,AST 75.0 U/L (15-37); BILIRUBIN TOTAL 1.2 mg/dL (0.2-1.0); BLOOD UREA NITROGEN,BUN 15.0 mg/dL (7-18); CARBON DIOXIDE,CO2 19.0 mEq/L (21-32); CHLORIDE,CL 94.0 mEq/L (98-107); CREATINE KINASE,CK 59.0 U/L (39-308); CREATININE 0.7 mg/dL (0.7-1.3); EST CRCL DRUG DOSING (CG) 140.11 mL/min; ESTIMATED GFR 113.0 mL/min (>60); ETHANOL BLOOD MEDICAL 0.3 gm% (0.00); GLUCOSE RANDOM 80.0 mg/dL (70-99); POTASSIUM,K 3.4 mEq/L (3.5-5.1); PROTEIN TOTAL,TP 7.7 g/dl (6.4-8.2); SODIUM,NA 137.0 mEq/L (136-145)
[2024-09-02] MEDS: diphenhydrAMINE 50 MG/ML SDV IVPUSH ONE (21:05)
[2024-09-02] MEDS ORDERED: Naloxone 0.4 MG/ML SDV IVPUSH PRN (21:34)
[2024-09-02] MEDS ORDERED: LORazepam 2 MG/ML SDV IV PRN (21:37)
[2024-09-02 22:49] LABS: BUPRENORPHINE SCREEN,URINE NEGATIVE (CUTOFF=10); METHADONE SCREEN, URINE NEGATIVE (CUT0FF=200); METHAMPHETAMINES SCREEN, URINE NEGATIVE (CUTOFF=500); OXYCODONE SCREEN,URINE NEGATIVE (CUT0FF=100); THC SCREEN,URINE 20 NG/ML NEGATIVE (CUTOFF=50)
[2024-09-02 22:52] LABS: AMPHETAMINES SCREEN, URINE NEGATIVE (CUTOFF=500)
[2024-09-03] MEDS: LORazepam 2 MG/ML SDV IV PRN (02:09)
[2024-09-03 04:24] LABS: BASOPHILS ABSOLUTE AUTO 0.0 K/mm3 (0.0-0.2); BASOPHILS PERCENT AUTO 0.1 % (0.0-1.0); EOSINOPHILS ABSOLUTE AUTO 0.0 K/mm3 (0.0-0.4); EOSINOPHILS PERCENT AUTO 0.2 % (0.0-6.0); IMMATURE GRAN ABSOLUTE AUTO 0.03 K/mm3 (0.00-0.05); IMMATURE GRAN PERCENT AUTO 0.4 % (0.0-0.4); LYMPHOCYTES ABSOLUTE AUTO 2.2 K/mm3 (1.0-4.8); LYMPHOCYTES PERCENT AUTO 27.0 % (24.0-44.0); MEAN PLATELET VOLUME 9.1 fl (9.4-12.4); MONOCYTES ABSOLUTE AUTO 0.4 K/mm3 (0.0-0.8); MONOCYTES PERCENT AUTO 4.9 % (0.0-8.0); NEUTROPHILS ABSOLUTE AUTO 5.4 K/mm3 (1.8-7.7); NEUTROPHILS PERCENT AUTO 67.4 % (41.0-71.0); NRBC ABSOLUTE 0.00 (0.00-0.02); NRBC PERCENT 0.0 % (0.0-0.2); PLATELET COUNT,PLT 126 K/mm3 (150-400); RED BLOOD CELL COUNT 3.95 M/mm3 (4.52-5.90); WHITE BLOOD CELL COUNT,WBC 8.03 K/mm3 (3.9-11.3)
[2024-09-03 04:52] LABS: A/G RATIO 1.1 (1-2); ALANINE AMINOTRANSFERASE,ALT 43.0 U/L (16-63); ASPARTATE AMNIOTRANSFERASE,AST 45.0 U/L (15-37); BILIRUBIN TOTAL 1.1 mg/dL (0.2-1.0); BLOOD UREA NITROGEN,BUN 9.0 mg/dL (7-18); CARBON DIOXIDE,CO2 21.0 mEq/L (21-32); CHLORIDE,CL 100.0 mEq/L (98-107); CREATININE 0.7 mg/dL (0.7-1.3); EST CRCL DRUG DOSING (CG) 140.11 mL/min; ESTIMATED GFR 113.0 mL/min (>60); GLUCOSE RANDOM 99.0 mg/dL (70-99); POTASSIUM,K 2.7 mEq/L (3.5-5.1); PROTEIN TOTAL,TP 5.8 g/dl (6.4-8.2); SODIUM,NA 136.0 mEq/L (136-145)
[2024-09-03] MEDS ORDERED: Non-Formulary Medication 1 Each (Escitalopram 20 MG Tablet) PO SCH (09:00)
[2024-09-03] MEDS: Magnesium Sulfat/D5W 1GM/100ML 1 GM in Premix Bag 1 BAG IV ONE (09:14)
[2024-09-03] MEDS: Potassium Phosphates 30 MMOLE in Sodium Chloride 0.9% 500 ML IV SCH (09:15)
[2024-09-03] MEDS: Potassium Chloride 20 MEQ Tab.ER PO ONE (09:18)
[2024-09-03] MEDS ORDERED: LORazepam 2 MG/ML SDV IVPUSH PRN ×2 (11:08→16:25)
[2024-09-03] MEDS: Magnesium Sulfate 2 GM/50 mL 2 GM in Premix Bag 1 BAG IV ONE ×2 (14:58→14:59)
[2024-09-03] MEDS ORDERED: hydrALAZINE 20 MG/ML SDV IVPUSH PRN (16:22)
[2024-09-03] MEDS ORDERED: Labetalol 100 MG/20 ML MDV IVPUSH PRN (16:22)
[2024-09-04 05:34] LABS: VITAMIN D,25-HYDROXY 37.0 ng/ml (30.0-100.0)
[2024-09-04 05:41] LABS: A/G RATIO 1.0 (1-2); ALANINE AMINOTRANSFERASE,ALT 36.0 U/L (16-63); ASPARTATE AMNIOTRANSFERASE,AST 24.0 U/L (15-37); BILIRUBIN TOTAL 1.3 mg/dL (0.2-1.0); BLOOD UREA NITROGEN,BUN 9.0 mg/dL (7-18); CARBON DIOXIDE,CO2 26.0 mEq/L (21-32); CHLORIDE,CL 99.0 mEq/L (98-107); CREATININE 0.5 mg/dL (0.7-1.3); EST CRCL DRUG DOSING (CG) 196.16 mL/min; ESTIMATED GFR 125.0 mL/min (>60); GLUCOSE RANDOM 133.0 mg/dL (70-99); PHOSPHORUS 1.5 mg/dL (2.6-4.7); POTASSIUM,K 3.6 mEq/L (3.5-5.1); PROTEIN TOTAL,TP 7.2 g/dl (6.4-8.2); SODIUM,NA 137.0 mEq/L (136-145)
[2024-09-04 06:01] LABS: FOLIC ACID 47.1 ng/mL (8.6-58.9)
[2024-09-04] MEDS: Cyanocobalamin (Vitamin B12) 1,000 MCG Tab PO SCH (08:10)
[2024-09-04] MEDS: Potassium Phosphates 30 MMOLE in Sodium Chloride 0.9% 500 ML IV ONE (08:10)
[2024-09-04 13:05] VITALS: BP 144/98; PULSE 89
== END 2024-09-04 13:03 | disposition home or self-care (01) | DRG 897 ==
LOC: JD.ED 15:03 → JD.MS 20:56
PROVIDERS: ADMIT Family Medicine; ATTEND Student in an Organized Health Care Education/Training Program
PROC: HZ2ZZZZ Detoxification Services for Substance Abuse Treatment (ICD-10-PCS; principal; 2024-09-02)
DX: F10.120 Alcohol abuse with intoxication, uncomplicated (principal); I10 Essential (primary) hypertension; K52.9 Noninfective gastroenteritis and colitis, unspecified; E87.6 Hypokalemia; K21.9 Gastro-esophageal reflux disease without esophagitis; F41.9 Anxiety disorder, unspecified; F17.200 Nicotine dependence, unspecified, uncomplicated; R94.31 Abnormal electrocardiogram [ECG] [EKG]; M1A.0620 Idiopathic chronic gout, left knee, without tophus (tophi); E83.39 Other disorders of phosphorus metabolism; E83.42 Hypomagnesemia; F10.139 Alcohol abuse with withdrawal, unspecified; Z88.1 Allergy status to other antibiotic agents; Z86.16 Personal history of COVID-19; Z90.49 Acquired absence of other specified parts of digestive tract; Z79.899 Other long term (current) drug therapy
CPT/HCPCS: 36415; 80053; 80143; 80179; 80306; 80307; 82306; 82550; 82607; 82746; 83690; 83735; 84100; 84425; 85025; 85610; 93005; 96365; 96366; 96367; 96368; 96375; 97112-GP; 97116-GP; 97162-GP; 97165-GO; 97535-GO; 99285-25; A9270-GY; J1200; J1650; J2060; J3411; J3475; J3480; J3490; J7030; J7040; J7512

== ENCOUNTER 2024-09-24 05:10 | Emergency (ER) | payer OTHER ==
[2024-09-24 05:39] VITALS: BP 159/98; PULSE 113
[2024-09-24] MEDS: Ondansetron 4 MG/2 ML SDV IVPUSH ONE (05:53)
[2024-09-24] MEDS: Sodium Chloride 0.9% 10 ML Syringe FLUSH PRN (05:54)
[2024-09-24] MEDS: LORazepam 2 MG/ML SDV IVPUSH ONE (05:54)
[2024-09-24 06:04] LABS: BASOPHILS ABSOLUTE AUTO 0.0 K/mm3 (0.0-0.2); BASOPHILS PERCENT AUTO 0.5 % (0.0-1.0); EOSINOPHILS ABSOLUTE AUTO 0.0 K/mm3 (0.0-0.4); EOSINOPHILS PERCENT AUTO 0.2 % (0.0-6.0); IMMATURE GRAN ABSOLUTE AUTO 0.02 K/mm3 (0.00-0.05); IMMATURE GRAN PERCENT AUTO 0.3 % (0.0-0.4); LYMPHOCYTES ABSOLUTE AUTO 1.8 K/mm3 (1.0-4.8); LYMPHOCYTES PERCENT AUTO 28.6 % (24.0-44.0); MEAN PLATELET VOLUME 9.2 fl (9.4-12.4); MONOCYTES ABSOLUTE AUTO 0.4 K/mm3 (0.0-0.8); MONOCYTES PERCENT AUTO 6.2 % (0.0-8.0); NEUTROPHILS ABSOLUTE AUTO 4.1 K/mm3 (1.8-7.7); NEUTROPHILS PERCENT AUTO 64.2 % (41.0-71.0); NRBC ABSOLUTE 0.00 (0.00-0.02); NRBC PERCENT 0.0 % (0.0-0.2); PLATELET COUNT,PLT 79 K/mm3 (150-400); RED BLOOD CELL COUNT 4.75 M/mm3 (4.52-5.90); WHITE BLOOD CELL COUNT,WBC 6.44 K/mm3 (3.9-11.3)
[2024-09-24 06:07] LABS: A/G RATIO 1.0 (1-2); ALANINE AMINOTRANSFERASE,ALT 77.0 U/L (16-63); ASPARTATE AMNIOTRANSFERASE,AST 152.0 U/L (15-37); BILIRUBIN TOTAL 2.1 mg/dL (0.2-1.0); BLOOD UREA NITROGEN,BUN 10.0 mg/dL (7-18); CARBON DIOXIDE,CO2 21.0 mEq/L (21-32); CHLORIDE,CL 94.0 mEq/L (98-107); CREATININE 0.8 mg/dL (0.7-1.3); EST CRCL DRUG DOSING (CG) 122.6 mL/min; ESTIMATED GFR 108.0 mL/min (>60); ETHANOL BLOOD MEDICAL 0.18 gm% (0.00); GLUCOSE RANDOM 110.0 mg/dL (70-99); POTASSIUM,K 3.2 mEq/L (3.5-5.1); PROTEIN TOTAL,TP 7.5 g/dl (6.4-8.2); SODIUM,NA 136.0 mEq/L (136-145); TSH 2.709 uIU/mL (0.358-3.74)
== END 2024-09-24 07:07 | disposition home or self-care (01) ==
LOC: JD.ED 05:10
DX: F10.220 Alcohol dependence with intoxication, uncomplicated (principal); I10 Essential (primary) hypertension; F17.210 Nicotine dependence, cigarettes, uncomplicated; Z88.8 Allergy status to other drugs, medicaments and biological substances; Z79.899 Other long term (current) drug therapy; Z86.16 Personal history of COVID-19; Z90.49 Acquired absence of other specified parts of digestive tract; Y90.0 Blood alcohol level of less than 20 mg/100 ml
CPT/HCPCS: 36415; 80053; 80143; 80179; 80307; 84443; 85025; 93005; 96361; 96374; 96375; 99285; J2060; J2405; J7030; 93010; 99284

== ENCOUNTER 2024-11-06 11:03 | Emergency (ER) | payer OTHER ==
[2024-11-06] MEDS: LORazepam 2 MG/ML SDV IVPUSH ONE (12:16)
[2024-11-06] MEDS: Sodium Chloride 0.9% 10 ML Syringe FLUSH PRN (12:16)
[2024-11-06] MEDS: Ondansetron 4 MG/2 ML SDV IVPUSH ONE (12:16)
[2024-11-06 12:35] LABS: MEAN PLATELET VOLUME 9.7 fl (9.4-12.4); NRBC ABSOLUTE 0.00 (0.00-0.02); NRBC PERCENT 0.0 % (0.0-0.2); PLATELET COUNT,PLT 64 K/mm3 (150-400); RED BLOOD CELL COUNT 4.49 M/mm3 (4.52-5.90); WHITE BLOOD CELL COUNT,WBC 5.00 K/mm3 (3.9-11.3)
[2024-11-06 12:45] LABS: BUPRENORPHINE SCREEN,URINE NEGATIVE (CUTOFF=10); METHADONE SCREEN, URINE NEGATIVE (CUT0FF=200); METHAMPHETAMINES SCREEN, URINE NEGATIVE (CUTOFF=500); OXYCODONE SCREEN,URINE NEGATIVE (CUT0FF=100); THC SCREEN,URINE 20 NG/ML NEGATIVE (CUTOFF=50)
[2024-11-06 12:53] LABS: AMPHETAMINES SCREEN, URINE NEGATIVE (CUTOFF=500)
[2024-11-06 13:05] LABS: A/G RATIO 1.1 (1-2); ALANINE AMINOTRANSFERASE,ALT 56.0 U/L (16-63); ASPARTATE AMNIOTRANSFERASE,AST 189.0 U/L (15-37); BILIRUBIN TOTAL 3.9 mg/dL (0.2-1.0); BLOOD UREA NITROGEN,BUN 7.0 mg/dL (7-18); CARBON DIOXIDE,CO2 22.0 mEq/L (21-32); CHLORIDE,CL 89.0 mEq/L (98-107); CREATININE 0.8 mg/dL (0.7-1.3); EST CRCL DRUG DOSING (CG) 122.6 mL/min; ESTIMATED GFR 108.0 mL/min (>60); ETHANOL BLOOD MEDICAL 0.11 gm% (0.00); GLUCOSE RANDOM 117.0 mg/dL (70-99); POTASSIUM,K 3.1 mEq/L (3.5-5.1); PROTEIN TOTAL,TP 7.6 g/dl (6.4-8.2); SODIUM,NA 138.0 mEq/L (136-145); TSH 2.267 uIU/mL (0.358-3.74)
[2024-11-06 13:15] LABS: BAND PERCENT MAN 0 % (0-10); BASOPHILS PERCENT MAN 1 (0.2-1.2); EOSINOPHILS PERCENT MAN 0 % (0.8-7.0); LYMPHOCYTES % ATYPICAL MANUAL 0 %; LYMPHOCYTES PERCENT MAN 13 % (20-40); MONOCYTES PERCENT MAN 8 % (2-10)
[2024-11-06 13:17] LABS: PLATELET COUNT ESTIMATE DECREASED
[2024-11-06] MEDS: Potassium Chloride 20 MEQ Tab.ER PO ONE (13:38)
[2024-11-06] MEDS: Magnesium Sulf/Wat 4 GM/50 mL 4 GM in Premix Bag 1 BAG IV ONE (14:18)
[2024-11-06 18:27] VITALS: BP 138/84; PULSE 89
== END 2024-11-06 18:15 | disposition home or self-care (01) ==
LOC: JD.ED 11:03
DX: F10.230 Alcohol dependence with withdrawal, uncomplicated (principal); I10 Essential (primary) hypertension; Z79.899 Other long term (current) drug therapy; Z86.16 Personal history of COVID-19; Z90.49 Acquired absence of other specified parts of digestive tract; Z88.8 Allergy status to other drugs, medicaments and biological substances
CPT/HCPCS: 36415; 80053; 80143; 80179; 80306; 80307; 82010; 83036; 83735; 84443; 85007; 85027; 93005; 96361; 96365; 96366; 96375; 99285; A9270; J2060; J2405; J2765; J3475; J7030; J7512

== ENCOUNTER 2025-01-11 13:08 | Emergency (ER) | payer OTHER ==
[2025-01-11 14:21] VITALS: BP 129/68; PULSE 78
[2025-01-11 14:25] LABS: BASOPHILS ABSOLUTE AUTO 0.0 K/mm3 (0.0-0.2); BASOPHILS PERCENT AUTO 0.6 % (0.0-1.0); EOSINOPHILS ABSOLUTE AUTO 0.0 K/mm3 (0.0-0.4); EOSINOPHILS PERCENT AUTO 0.4 % (0.0-6.0); IMMATURE GRAN ABSOLUTE AUTO 0.01 K/mm3 (0.00-0.05); IMMATURE GRAN PERCENT AUTO 0.1 % (0.0-0.4); LYMPHOCYTES ABSOLUTE AUTO 2.5 K/mm3 (1.0-4.8); LYMPHOCYTES PERCENT AUTO 36.4 % (24.0-44.0); MEAN PLATELET VOLUME 9.5 fl (9.4-12.4); MONOCYTES ABSOLUTE AUTO 0.7 K/mm3 (0.0-0.8); MONOCYTES PERCENT AUTO 10.5 % (0.0-8.0); NEUTROPHILS ABSOLUTE AUTO 3.6 K/mm3 (1.8-7.7); NEUTROPHILS PERCENT AUTO 52.0 % (41.0-71.0); NRBC ABSOLUTE 0.00 (0.00-0.02); NRBC PERCENT 0.0 % (0.0-0.2); PLATELET COUNT,PLT 188 K/mm3 (150-400); RED BLOOD CELL COUNT 5.01 M/mm3 (4.52-5.90); WHITE BLOOD CELL COUNT,WBC 6.87 K/mm3 (3.9-11.3)
[2025-01-11] MEDS: Ondansetron 4 MG/2 ML SDV IVPUSH ONE (14:30)
[2025-01-11] MEDS: Thiamine 200 MG/2 ML MDV IVPUSH ONE (14:30)
[2025-01-11 14:35] LABS: AMPHETAMINES SCREEN, URINE NEGATIVE (CUTOFF=500); BUPRENORPHINE SCREEN,URINE NEGATIVE (CUTOFF=10); METHADONE SCREEN, URINE NEGATIVE (CUT0FF=200); METHAMPHETAMINES SCREEN, URINE NEGATIVE (CUTOFF=500); OXYCODONE SCREEN,URINE NEGATIVE (CUT0FF=100); THC SCREEN,URINE 20 NG/ML NEGATIVE (CUTOFF=50)
[2025-01-11 14:53] LABS: A/G RATIO 0.9 (1-2); ALANINE AMINOTRANSFERASE,ALT 76.0 U/L (16-63); BILIRUBIN TOTAL 1.1 mg/dL (0.2-1.0); BLOOD UREA NITROGEN,BUN 10.0 mg/dL (7-18); CARBON DIOXIDE,CO2 26.0 mEq/L (21-32); CHLORIDE,CL 93.0 mEq/L (98-107); CREATININE 0.5 mg/dL (0.7-1.3); EST CRCL DRUG DOSING (CG) 194.0 mL/min; ESTIMATED GFR 124.0 mL/min (>60); ETHANOL BLOOD MEDICAL 0.36 gm% (0.00); GLUCOSE RANDOM 111.0 mg/dL (70-99); PROTEIN TOTAL,TP 7.3 g/dl (6.4-8.2); SODIUM,NA 134.0 mEq/L (136-145); TSH 2.333 uIU/mL (0.358-3.74)
[2025-01-11 15:00] LABS: POTASSIUM,K 4.5 mEq/L (3.5-5.1)
[2025-01-11 15:01] LABS: ASPARTATE AMNIOTRANSFERASE,AST 96.0 U/L (15-37)
[2025-01-11 17:08] LABS: APPEARANCE,URINE CLEAR (Clear); GLUCOSE,URINE NEGATIVE (Negative); OCCULT BLOOD,URINE NEGATIVE (Negative)
[2025-01-11 17:35] LABS: EPITHELIAL CELLS,URINE 0-5 /hpf (0-5)
== END 2025-01-11 19:45 | disposition home or self-care (01) ==
LOC: JD.ED 13:08
DX: F10.10 Alcohol abuse, uncomplicated (principal); E86.0 Dehydration; I10 Essential (primary) hypertension; Z88.8 Allergy status to other drugs, medicaments and biological substances; Z79.899 Other long term (current) drug therapy; Z86.16 Personal history of COVID-19; Z90.49 Acquired absence of other specified parts of digestive tract
CPT/HCPCS: 36415; 80053; 80143; 80179; 80306; 80307; 81001; 84443; 85025; 93005; 96361; 96374; 96375; 99284; A9270; J2405; J3411; J7030

== ENCOUNTER 2025-01-30 13:53 | Emergency (ER) | payer OTHER ==
[2025-01-30 14:14] VITALS: PULSE 108
[2025-01-30] MEDS ORDERED: Sodium Chloride 0.9% 10 ML Syringe FLUSH PRN (14:57)
[2025-01-30 15:37] LABS: BASOPHILS ABSOLUTE AUTO 0.1 K/mm3 (0.0-0.2); BASOPHILS PERCENT AUTO 0.6 % (0.0-1.0); EOSINOPHILS ABSOLUTE AUTO 0.0 K/mm3 (0.0-0.4); EOSINOPHILS PERCENT AUTO 0.1 % (0.0-6.0); IMMATURE GRAN ABSOLUTE AUTO 0.04 K/mm3 (0.00-0.05); IMMATURE GRAN PERCENT AUTO 0.4 % (0.0-0.4); LYMPHOCYTES ABSOLUTE AUTO 1.6 K/mm3 (1.0-4.8); LYMPHOCYTES PERCENT AUTO 16.4 % (24.0-44.0); MEAN PLATELET VOLUME 8.6 fl (9.4-12.4); MONOCYTES ABSOLUTE AUTO 0.6 K/mm3 (0.0-0.8); MONOCYTES PERCENT AUTO 6.2 % (0.0-8.0); NEUTROPHILS ABSOLUTE AUTO 7.4 K/mm3 (1.8-7.7); NEUTROPHILS PERCENT AUTO 76.3 % (41.0-71.0); NRBC ABSOLUTE 0.00 (0.00-0.02); NRBC PERCENT 0.0 % (0.0-0.2); PLATELET COUNT,PLT 212 K/mm3 (150-400); RED BLOOD CELL COUNT 4.85 M/mm3 (4.52-5.90); WHITE BLOOD CELL COUNT,WBC 9.73 K/mm3 (3.9-11.3)
[2025-01-30 15:59] LABS: A/G RATIO 0.8 (1-2); ALANINE AMINOTRANSFERASE,ALT 40.0 U/L (16-63); ASPARTATE AMNIOTRANSFERASE,AST 54.0 U/L (15-37); BILIRUBIN TOTAL 1.0 mg/dL (0.2-1.0); BLOOD UREA NITROGEN,BUN 12.0 mg/dL (7-18); CARBON DIOXIDE,CO2 24.0 mEq/L (21-32); CHLORIDE,CL 98.0 mEq/L (98-107); CREATININE 0.7 mg/dL (0.7-1.3); EST CRCL DRUG DOSING (CG) 138.57 mL/min; ESTIMATED GFR 112.0 mL/min (>60); ETHANOL BLOOD MEDICAL 0.38 gm% (0.00); GLUCOSE RANDOM 88.0 mg/dL (70-99); POTASSIUM,K 3.6 mEq/L (3.5-5.1); PROTEIN TOTAL,TP 7.1 g/dl (6.4-8.2); SODIUM,NA 139.0 mEq/L (136-145)
[2025-01-30 17:31] LABS: BUPRENORPHINE SCREEN,URINE NEGATIVE (CUTOFF=10); METHADONE SCREEN, URINE NEGATIVE (CUT0FF=200); METHAMPHETAMINES SCREEN, URINE NEGATIVE (CUTOFF=500); OXYCODONE SCREEN,URINE NEGATIVE (CUT0FF=100); THC SCREEN,URINE 20 NG/ML NEGATIVE (CUTOFF=50)
[2025-01-30 17:37] LABS: AMPHETAMINES SCREEN, URINE NEGATIVE (CUTOFF=500)
[2025-01-30] MEDS: Ondansetron 4 MG/2 ML SDV IVPUSH ONE (17:53)
[2025-01-30] MEDS: Ondansetron 4 MG/2 ML SDV ONE (17:53)
[2025-01-30 18:53] VITALS: BP 115/88
== END 2025-01-30 18:48 | disposition home or self-care (01) ==
LOC: JD.ED 13:53
DX: F10.129 Alcohol abuse with intoxication, unspecified (principal); I10 Essential (primary) hypertension; F17.200 Nicotine dependence, unspecified, uncomplicated; Z88.8 Allergy status to other drugs, medicaments and biological substances; Z79.899 Other long term (current) drug therapy; Z86.16 Personal history of COVID-19; Z90.49 Acquired absence of other specified parts of digestive tract
CPT/HCPCS: 36415; 71045; 80053; 80306; 80307; 83690; 83735; 85025; 87428; 96374; 99284; A9270; J2405; J7030